=== PATIENT | female | born 1960 | race African-American/Black ===

== ENCOUNTER 2020-07-14 10:14 | Outpatient (CLI) | payer BC, SELFPAY ==
--- NOTE | ~2020-07-14 | CT_ITS ---
EXAMINATION: CT chest wo con EXAM DATE: 07/14/2020 10:38 INDICATION: Abnormal XR exam. TECHNIQUE: Spiral CT of the chest without contrast. Axial, coronal and sagittal images were reviewe d. Coronal maximum intensity pixel images of chest reviewed. The dose-length product (DLP) for this examination was 522.10 mGy-cm. The exposure was tailored according to patient size (auto mA exposur e control), and iterative reconstruction (ASIR) was used as additional dose reduction technique. The re is no prior study for comparison. FINDINGS: There are several lung nodules bilaterally, up to 4 mm in size. Most likely granulomas. Op tional one-year follow-up low-dose chest CT. There are no pleural or pericardial effusions. Trache obronchial tree is patent. There is no mediastinal, hilar or axillary lymphadenopathy. There is n o pneumothorax. Heart normal in size. No evidence of coronary arterial calcification. Upper abdo men is unremarkable. There is thoracic spondylosis without osteoblastic or osteolytic lesions ident ified. IMPRESSION: 1. Scattered small pulmonary nodules likely postinfectious. Optional one-year follow-up low-dose [facility]. Reviewed, dictated and finalized at location A. E FINISHER IMPRESSION: 1. Scattered small pulmonary nodules likely postinfectious. Optional one-year follow-up low-dose chest CT.
== END 2020-07-14 10:15 | disposition home or self-care (01) ==
LOC: ANHIMG 10:19
PROVIDERS: PCP Family Medicine; Visit Provider Family Medicine
DX: R91.8 Other nonspecific abnormal finding of lung field (principal)
CPT/HCPCS: 71250

== ENCOUNTER 2020-09-18 13:17 | Outpatient (CLI) | payer BC, SELFPAY ==
[2020-09-18 13:57] LABS: Alanine Aminotransferase 33 U/L (4-35); Albumin Level 4.5 g/dL (3.5-5.1); Alkaline Phosphatase 88 U/L (38-126); Anion Gap 3 mmol/L (8-16); Aspartate Amino Transferase 24 U/L (14-36); Bilirubin,Total 0.7 mg/dL (0.2-1.3); Blood Urea Nitrogen 12 mg/dL (7-17); Calcium 9.8 mg/dL (8.4-10.2); Carbon Dioxide 34 mmol/L (22-30); Chloride 105 mmol/L (98-107); Estimated Glomerular Filt Rate > 60; Glucose 120 mg/dL (65-105); Potassium 3.8 mmol/L (3.4-5.0); Sodium 142 mmol/L (137-145)
[2020-09-18 14:11] LABS: Hemoglobin A1C 5.9 % (<5.7)
[2020-09-18 14:38] LABS: Creatinine Urine 103.9 mg/dL
[2020-09-18 14:42] LABS: MALB Creatinine Ratio 10.5 mg/g (0-30); Microalbumin Urine Random 10.9 mg/L (0-16.7)
== END 2020-09-18 13:18 | disposition home or self-care (01) ==
LOC: ANHLAB 13:19
PROVIDERS: PCP Family Medicine; Visit Provider Family Medicine
DX: E11.40 Type 2 diabetes mellitus with diabetic neuropathy, unspecified (principal); E78.2 Mixed hyperlipidemia; I10 Essential (primary) hypertension
CPT/HCPCS: 36415; 80053; 82043; 82607; 83036

== ENCOUNTER 2021-09-22 10:47 | Outpatient (CLI) | payer OTHER, SELFPAY ==
[2021-09-22 11:37] LABS: Basophils Absolute Auto 0.1 K/mm3 (0.0-0.1); Basophils Percent Auto 0.5 % (0.2-1.2); Eosinophils Absolute Auto 0.3 K/mm3 (0-0.3); Eosinophils Percent Auto 3.2 % (0-4.4); Hematocrit 36.9 % (37.0-47.0); Immature Granulocyte Absolute 0.03 K/mm3 (0.00-0.031); Immature Granulocyte Percent A 0.3 % (0-0.5); Lymphocytes Absolute Auto 2.22 K/mm3 (0.9-3.2); Lymphocytes Percent Auto 22.3 % (18.3-44.2); Mean Corpuscular HGB Conc 32.5 g/dl (32-36); Mean Corpuscular Hemoglobin 29.8 pg (26-34); Mean Corpuscular Volume 91.6 fl (80-100); Mean Platelet Volume 10.8 fl (7.4-10.4); Monocytes Absolute Auto 0.5 K/mm3 (0.1-0.6); Monocytes Percent Auto 5.1 % (2.6-8.5); Neutrophils Absolute Auto 6.8 K/mm3 (1.3-6.7); Neutrophils Percent Auto 68.6 % (45.5-73.1); Platelet Count Result 273 k/mm3 (150-375); Red Blood Count 4.03 M/mm3 (4.2-5.4); Red Cell Distribution Width 12.4 % (11.5-14.5); White Blood Count 9.9 K/mm3 (4.5-10.0)
[2021-09-22 11:44] LABS: Hemoglobin A1C 6.7 % (<5.7)
[2021-09-22 11:47] LABS: Alanine Aminotransferase 31 U/L (4-35); Albumin Level 4.6 g/dL (3.5-5.1); Alkaline Phosphatase 100 U/L (38-126); Anion Gap 8 mmol/L (8-16); Aspartate Amino Transferase 26 U/L (14-36); Bilirubin,Total 0.5 mg/dL (0.2-1.3); Blood Urea Nitrogen 13 mg/dL (7-17); Calcium 9.5 mg/dL (8.4-10.2); Carbon Dioxide 28 mmol/L (22-30); Chloride 102 mmol/L (98-107); Cholesterol 258 mg/dL (0-200); Estimated Glomerular Filt Rate > 60; Glucose 176 mg/dL (65-110); HDL Direct 68 mg/dL; Potassium 3.8 mmol/L (3.4-5.0); Sodium 138 mmol/L (137-145); Triglycerides 104 mg/dL (<150)
[2021-09-22 11:57] LABS: LDL Cholesterol Direct 145 mg/dL
[2021-09-22 12:04] LABS: Creatinine Urine 100.5 mg/dL
[2021-09-22 12:13] LABS: MALB Creatinine Ratio < 6.0 mg/g (0-30); Microalbumin Urine Random < 6.0 mg/L (0-16.7)
[2021-09-22 12:21] LABS: Vitamin D 25 Hydroxy 21.4 ng/mL
[2021-09-22 12:53] LABS: Hepatitis C Virus Antibody Negative (Negative)
== END 2021-09-22 10:48 | disposition home or self-care (01) ==
LOC: ANHLAB 10:51
PROVIDERS: PCP Family Medicine; Visit Provider Family Medicine
DX: G47.33 Obstructive sleep apnea (adult) (pediatric) (principal); E11.40 Type 2 diabetes mellitus with diabetic neuropathy, unspecified; E78.2 Mixed hyperlipidemia; Z11.59 Encounter for screening for other viral diseases
CPT/HCPCS: 36415; 80053; 80061; 82043; 82306; 82607; 83036; 85025; 86803

== ENCOUNTER 2021-11-18 10:26 | Outpatient (CLI) | payer OTHER, SELFPAY ==
--- NOTE | ~2021-11-18 | CT_ITS ---
EXAMINATION: CT diagnostic chest wo con DATE: 11/18/2021 10:45 INDICATION: Lung nodules TECHNIQUE: Computed tomography (CT) of the chest was performed without intravenous contrast. Automate d exposure control and iterative reconstruction technique were employed. Exam dose: 366.01 mGy-cm to cristo exam DLP. COMPARISON: 07/14/2020 CT chest FINDINGS: Normal heart size. Normal caliber of the thoracic aorta. There is mild atherosclerotic calc ification of the aortic arch. No pericardial or pleural effusion. No hilar or mediastinal mass lesion or lymphadenopathy. Small calcified left lower lobe pulmonary granuloma. Stable approximately 4 mm middle lobe nodule since 11/18/2021. No significant new or enlarging pulmona ry mass lesion. Very small sliding hiatal hernia. Normal morphology of the adrenal glands.. Prominent diffuse idiopathic skeletal hyperostosis of the thoracic spine. No suspicious osteolytic or osteoblastic lesions are noted. IMPRESSION: No significant abnormality or significant change since 07/14/2020 Reviewed, dictated and finalized at Location A. Reviewed, dictated and finalized at location A.
== END 2021-11-18 10:27 | disposition home or self-care (01) ==
LOC: ANHIMG 10:30
PROVIDERS: PCP Family Medicine; Visit Provider Family Medicine
DX: R91.8 Other nonspecific abnormal finding of lung field (principal)
CPT/HCPCS: 71250

== ENCOUNTER 2021-11-28 14:54 | Outpatient (CLI) | payer OTHER, SELFPAY ==
[2021-11-28 15:21] LABS: Anion Gap 7 mmol/L (8-16); Blood Urea Nitrogen 11 mg/dL (7-17); Calcium 9.3 mg/dL (8.4-10.2); Carbon Dioxide 28 mmol/L (22-30); Chloride 102 mmol/L (98-107); Estimated Glomerular Filt Rate > 60; Glucose 180 mg/dL (65-110); Potassium 3.9 mmol/L (3.4-5.0); Sodium 137 mmol/L (137-145)
== END 2021-11-28 14:55 | disposition home or self-care (01) ==
LOC: ANHLAB 14:56
PROVIDERS: PCP Family Medicine; Visit Provider Physician Assistant Medical
DX: Z51.81 Encounter for therapeutic drug level monitoring (principal); Z79.899 Other long term (current) drug therapy
CPT/HCPCS: 36415; 80048

== ENCOUNTER 2022-02-24 14:48 | Outpatient (CLI) | payer OTHER, SELFPAY ==
[2022-02-24 16:08] LABS: Alanine Aminotransferase 24 U/L (6-35); Albumin Level 4.6 g/dL (3.5-5.1); Alkaline Phosphatase 115 U/L (38-126); Anion Gap 10 mmol/L (8-16); Aspartate Amino Transferase 24 U/L (14-36); Bilirubin,Total 0.8 mg/dL (0.2-1.3); Blood Urea Nitrogen 22 mg/dL (7-17); Calcium 9.7 mg/dL (8.4-10.2); Carbon Dioxide 28 mmol/L (22-30); Chloride 100 mmol/L (98-107); Cholesterol 260 mg/dL (0-200); Estimated Glomerular Filt Rate > 60; Glucose 263 mg/dL (65-110); HDL Direct 60 mg/dL; Potassium 3.9 mmol/L (3.4-5.0); Sodium 138 mmol/L (137-145); Triglycerides 145 mg/dL (<150)
[2022-02-24 16:19] LABS: LDL Cholesterol Direct 148 mg/dL
[2022-02-24 16:40] LABS: Creatinine Urine 104.5 mg/dL
[2022-02-24 16:42] LABS: Hemoglobin A1C 10.8 % (<5.7)
[2022-02-24 17:47] LABS: MALB Creatinine Ratio < 5.7 mg/g (0-30); Microalbumin Urine Random < 6.0 mg/L (0-16.7)
== END 2022-02-24 14:49 | disposition home or self-care (01) ==
LOC: ANHLAB 14:51
PROVIDERS: PCP Family Medicine; Visit Provider Family Medicine
DX: E11.40 Type 2 diabetes mellitus with diabetic neuropathy, unspecified (principal)
CPT/HCPCS: 36415; 80053; 80061; 82043; 82607; 83036

== ENCOUNTER 2022-06-14 14:22 | Outpatient (CLI) | payer OTHER, SELFPAY ==
--- NOTE | ~2022-06-14 | MM_ITS ---
EXAMINATION: MM screening prashant BI w charles HISTORY: Screening TECHNIQUE: Craniocaudal and mediolateral oblique 3-D tomosynthesis images were obtained and synthetic 2-D images were generated. CAD analysis was submitted and interpreted. COMPARISON: Comparison to multiple prior studies sequentially, with oldest reviewed study dated 05/02. BREAST PARENCHYMAL COMPOSITION: Breast composed of scattered areas of fibroglandular density FINDINGS: There is no evidence of suspicious mass, calcification, or architectural distortion to sugg est malignancy in either breast. There has been no suspicious interval change. IMPRESSION: 1. No mammographic evidence of malignancy. 2. Recommend routine screening mammography in one year. BI-RADS Category 1: Negative Reviewed, dictated and finalized at location A.
--- NOTE | ~2022-06-14 | DEXA_ITS ---
Bone Density Report Name: SETH DIAS Age: 62 Sex: Female Ethnicity: White Date of : 1960 Indication: postmenopausal; screening for osteoporosis; height loss; hysterectomy; Referring Provider: PALLAVI SHIPMAN Study: Bone densitometry was performed. Exam Date: June 14, 2022 Accession number: [id number] Bone Density: Region BMD T-score Z-score Classification AP Spine(L1, L2, L3) 1.091 0.7 2.3 Normal Femoral Neck (Left) 0.810 -0.4 1.1 Normal Total Hip (Left) 0.944 0.0 1.2 Normal Femoral Neck (Right) 0.797 -0.5 1.0 Normal Total Hip (Right) 0.907 -0.3 0.9 Normal Total Hip Mean 0.926 -0.2 1.1 Normal World Health Organization criteria for BMD impression classify patients as: Normal (T-score at or above -1.0), Osteopenia (T-score between -1.0 and -2.5), or Osteoporosis (T-score at or below -2.5). 10-year Fracture Risk: FRAX not reported because: All T-scores for Spine Total, Hip Total, Femoral Neck at or above -1.0 Clinical Information Provided by Patient: Has used the following medications: Vitamin D, Calcium Has the following medical conditions: Hysterectomy Patient maximum height was 67 Menopause Age: 38 Drinks caffeinated beverages Onset of menses at age 8 Number of children 4 Impression: The patient has normal bone mass. Discussion: BONE DENSITY IS ABOVE THE MINIMUM DESIRABLE LEVEL AT ALL SKELETAL SITES TESTED. This patient?s bone mineral density is above the minimum desirable level (T-score -1.0 or better) at all sites measured. The patient should follow a healthful lifestyle (good nutrition with adequate calcium and vitamin D, and appropriate weight-bearing exercise). Follow-Up: Consider repeating this study in 5 years or sooner if there is some new clinical indication. Reported by: NIC on 06/14/2022 2:52:00 PM. Reviewed, dictated and finalized at location AJace WAGNER
== END 2022-06-14 14:23 | disposition home or self-care (01) ==
LOC: ANHIMG 14:27
PROVIDERS: PCP Family Medicine; Visit Provider Family Medicine
DX: Z12.31 Encounter for screening mammogram for malignant neoplasm of breast (principal); Z78.0 Asymptomatic menopausal state
CPT/HCPCS: 77063; 77067; 77080

== ENCOUNTER 2022-09-06 12:55 | Outpatient (CLI) | payer OTHER, SELFPAY ==
[2022-09-06 19:32] LABS: Creatinine Urine 191.2 mg/dL
[2022-09-06 19:34] LABS: MALB Creatinine Ratio 45.1 mg/g (0-30); Microalbumin Urine Random 86.3 mg/L (0-16.7)
[2022-09-06 20:35] LABS: Alanine Aminotransferase 23 U/L (6-35); Albumin Level 4.4 g/dL (3.5-5.1); Alkaline Phosphatase 85 U/L (38-126); Anion Gap 5 mmol/L (8-16); Aspartate Amino Transferase 27 U/L (14-36); Bilirubin,Total 0.5 mg/dL (0.2-1.3); Blood Urea Nitrogen 14 mg/dL (7-17); Calcium 9.2 mg/dL (8.4-10.2); Carbon Dioxide 29 mmol/L (22-30); Chloride 107 mmol/L (98-107); Cholesterol 254 mg/dL (0-200); Estimated Glomerular Filt Rate > 60; Glucose 129 mg/dL (65-110); HDL Direct 63 mg/dL; Potassium 4.1 mmol/L (3.4-5.0); Sodium 141 mmol/L (137-145); Triglycerides 93 mg/dL (<150)
[2022-09-06 20:46] LABS: LDL Cholesterol Direct 132 mg/dL
== END 2022-09-06 12:56 | disposition home or self-care (01) ==
LOC: ANHGOSHLAB 12:57
PROVIDERS: PCP Family Medicine; Visit Provider Family Medicine
DX: E11.40 Type 2 diabetes mellitus with diabetic neuropathy, unspecified (principal)
CPT/HCPCS: 36415; 80053; 80061; 82043; 82607; 83036

== ENCOUNTER 2023-03-07 12:36 | Outpatient (CLI) | payer MEDICARE, SELFPAY ==
[2023-03-07 18:45] LABS: Basophils Absolute Auto 0.1 K/mm3 (0.0-0.1); Basophils Percent Auto 0.7 % (0.2-1.2); Eosinophils Absolute Auto 0.1 K/mm3 (0-0.3); Eosinophils Percent Auto 1.1 % (0-4.4); Hemoglobin 12.7 g/dL (12.0-15.0); Immature Granulocyte Absolute 0.02 K/mm3 (0.00-0.031); Immature Granulocyte Percent A 0.2 % (0-0.5); Lymphocytes Absolute Auto 2.33 K/mm3 (0.9-3.2); Lymphocytes Percent Auto 23.4 % (18.3-44.2); Mean Corpuscular HGB Conc 32.6 g/dl (32-36); Mean Corpuscular Volume 92.2 fl (80-100); Mean Platelet Volume 10.9 fl (7.4-10.4); Monocytes Absolute Auto 0.5 K/mm3 (0.1-0.6); Monocytes Percent Auto 4.5 % (2.6-8.5); Neutrophils Percent Auto 70.1 % (45.5-73.1); Platelet Count Result 303 k/mm3 (150-375); Red Blood Count 4.23 M/mm3 (4.2-5.4); Red Cell Distribution Width 12.2 % (11.5-14.5)
[2023-03-07 19:08] LABS: Alanine Aminotransferase 22 U/L (6-35); Albumin Level 4.7 g/dL (3.5-5.1); Alkaline Phosphatase 94 U/L (38-126); Anion Gap 9 mmol/L (8-16); Aspartate Amino Transferase 36 U/L (14-36); Bilirubin,Total 0.6 mg/dL (0.2-1.3); Blood Urea Nitrogen 12 mg/dL (7-17); Calcium 9.4 mg/dL (8.4-10.2); Carbon Dioxide 30 mmol/L (22-30); Chloride 102 mmol/L (98-107); Cholesterol 271 mg/dL (0-200); Estimated Glomerular Filt Rate > 60; Glucose 135 mg/dL (65-110); HDL Direct 61 mg/dL; Potassium 3.5 mmol/L (3.4-5.0); Sodium 141 mmol/L (137-145); Triglycerides 148 mg/dL (<150)
[2023-03-07 19:16] LABS: Creatinine Urine 18.3 mg/dL
[2023-03-07 19:19] LABS: LDL Cholesterol Direct 157 mg/dL
[2023-03-07 19:20] LABS: Vitamin D 25 Hydroxy 21.7 ng/mL
[2023-03-07 19:32] LABS: Microalbumin Urine Random < 6.0 mg/L (0-16.7)
[2023-03-07 19:45] LABS: Hemoglobin A1C 6.4 % (<5.7)
== END 2023-03-07 12:37 | disposition home or self-care (01) ==
LOC: ANHGOSHLAB 12:39
PROVIDERS: PCP Family Medicine; Visit Provider Family Medicine
DX: E11.40 Type 2 diabetes mellitus with diabetic neuropathy, unspecified (principal); G47.33 Obstructive sleep apnea (adult) (pediatric); E55.9 Vitamin D deficiency, unspecified
CPT/HCPCS: 36415; 80053; 80061; 82043; 82306; 82607; 83036; 85025

== ENCOUNTER 2023-04-13 10:50 | Outpatient (CLI) | payer MEDICARE, SELFPAY ==
--- NOTE | ~2023-04-13 | MMUS_ITS ---
EXAMINATION: MM diagnostic prashant BI w charles, US breast LT limited HISTORY: Palpable lump in the upper outer quadrant of the left breast TECHNIQUE: Craniocaudal, mediolateral, and mediolateral oblique 3-D tomosynthesis images of the left breast were performed and synthetic 2-D images were generated. CAD analysis was submitted and interpr eted. High resolution limited left breast ultrasound was performed. COMPARISON: 06/14/2022, 05/02/2017 BREAST PARENCHYMAL COMPOSITION: The breasts are almost entirely fatty. FINDINGS: MAMMOGRAPHIC FINDINGS: Right breast: No suspicious mass, calcification, or architectural distortion are identified to sugges t malignancy. There has been no suspicious interval change. Left breast: There is a 4 mm round, circumscribed, low density mass in the anterior third of the slig htly upper breast at the 1:00 location 4 cm from the nipple corresponding to the palpable abnormality of concern. No suspicious calcification or architectural distortion are identified. ULTRASOUND: There is a 4 mm round, circumscribed, hypoechoic mass at the 12:00 location 3 cm from the nipple with no posterior features or internal vascularity corresponding to the palpable abnormality of concern w hich appears to demonstrate a tract to the skin surface, consistent with a sebaceous cyst. IMPRESSION: 1. Findings consistent with a sebaceous cyst of the left breast corresponding to the palpable abnorma lity of concern. 2. Recommend routine screening mammography in one year. BI-RADS Category 2: Benign finding(s). Reviewed, dictated and finalized at location A. IMPRESSION: 1. Findings consistent with a sebaceous cyst of the left breast corresponding t o the palpable abnormality of concern. 2. Recommend routine screening mammography in one year. BI-RADS Category 2: Benign finding(s).
== END 2023-04-13 10:51 | disposition home or self-care (01) ==
LOC: ANHIMG 10:51
PROVIDERS: PCP Family Medicine; Visit Provider Family Medicine
DX: N63.20 Unspecified lump in the left breast, unspecified quadrant (principal); R92.8 Other abnormal and inconclusive findings on diagnostic imaging of breast
CPT/HCPCS: 76642; 77062; 77066; G0279

== ENCOUNTER 2023-06-27 00:51 | Day surgery (SDC) | payer MEDICARE, SELFPAY ==
[2023-06-15 14:02] VITALS: BMI 36.2
--- NOTE | 2023-06-26 16:28 | PM.HPGS ---
History of Present Illness History of Present Illness Consent: Risks, benefits, and alternatives have been discussed and questions answered. Patient agrees to proceed with procedure. Chief complaint: neoplasm screening Narrative: Celio Pompa is a 63 year old female referred for colon cancer screening. Review of Systems Review of Systems: All systems reviewed & are unremarkable except as noted in HPI and below PMFSH Past Medical History Medical History Cervical radiculopathy at C8 Spinal stenosis of lumbosacral region (11/25/17) Surgical History Surgical History History of back surgery Family History Family History Mother Cerebrovascular accident Family history of malignant neoplasm of breast in first degree relative Father Family history of pancreatic cancer Social History Social History Smoking status: Never smoker Alcohol intake: current Drinks per week: 1 Substance use type: does not use Lack of Transportation: No Lack of Food: Never True Current Housing: I Have Housing Concerned About Future Housing: No Difficulty Paying Gas/Electric Bills: No Difficulty Paying for Meds: No Currently Unemployed: No Education: Bachelor's Degree Difficulty w/ Childcare or Family Care: No Living arrangements: with family Occupation/Education: retired Spiritual care concerns: No Meds Home Medications and Allergies Home Medications Medication Instructions Recorded Confirmed Type atorvastatin 40 mg tablet 40 mg PO QHS #90 tabs 09/22/21 06/15/23 Rx furosemide 40 mg tablet 40 mg PO QAM #90 tabs 04/19/22 06/15/23 Rx flash glucose scanning reader #1 ea 09/06/22 06/12/23 Rx (FreeStyle Vivi 2 [place]) flash glucose sensor (FreeStyle #10 ea 09/06/22 06/12/23 Rx Vivi 2 Sensor kit) metformin 500 mg tablet,extended 1,000 mg PO BID #360 tabs 09/06/22 06/15/23 Rx release 24 hr celecoxib 100 mg capsule See Rx Instructions .Route 11/15/22 06/15/23 Rx .COMPLEX #180 caps tizanidine 2 mg capsule See Rx Instructions .Route 11/15/22 06/15/23 Rx .COMPLEX #90 caps blood sugar diagnostic #100 ea 01/10/23 06/12/23 Rx amlodipine 5 mg-olmesartan 40 mg 1 tablet PO DAILY #90 tabs 01/24/23 06/15/23 Rx tablet mupirocin 2 % topical ointment 1 applic topical BID #22 grams 06/08/23 06/15/23 Rx clotrimazole 1 % topical cream 1 applic topical Q12H #45 grams 06/12/23 06/15/23 Rx Allergies Allergy/AdvReac Type Severity Reaction Status Date / Time semaglutide [From [facility]] AdvReac Intermediate blurriness Verified 06/27/23 09:24 of vision Exam Const: General: alert Orientation/consciousness: patient oriented x3 Resp: Auscultation: clear to auscultation bilaterally Cardio: Rhythm: regular rhythm GI: GI Palp: Yes Soft to palpation and No Tenderness to palpation present (GI) Neuro: General: patient oriented x3 Assessment and Plan Assessment and plan (1) Colon cancer screening: Code(s): Z12.11 - Encounter for screening for malignant neoplasm of colon Status: Acute Assessment and Plan: Colonoscopy with possible biopsy or polypectomy or cautery or injection of substances.
[2023-06-27 09:26] VITALS: BP 144/81; PULSE 73; RESP 20; TEMP 36.2; O2SAT 98; BMI 35.0
[2023-06-27] MEDS: LACTATED RINGERS 1,000 ML 150 ML IV CONT (09:40)
[2023-06-27 09:41] LABS: Glucose Point of Care 151 mg/dl (65-105)
--- NOTE | 2023-06-27 09:55 | WPDANESEPPF ---
Anes - Initial Pre Proc Eval Procedure: Operation Date: 06/27/23 10:30 Proposed Procedures p Screening Colonoscopy - Saeed Steve MD Date/Time: 06/27/23 09:55 Surgeon: Saeed Steve MD Pre Op Diagnosis: neoplasm screening Patient Data Age: 63 Gender: F Height: 1.7 m Weight: 101.5 kg Last Vital Signs Temp 97.2 F L 06/27/23 09:26 Pulse 73 06/27/23 09:26 Resp 20 06/27/23 09:26 BP 144/81 H 06/27/23 09:26 Pulse Ox 98 06/27/23 09:26 O2 Del Method Room Air 06/27/23 09:26 Allergies Allergy/AdvReac Type Severity Reaction Status Date / Time semaglutide [From [facility]] AdvReac Intermediate blurriness Verified 06/27/23 09:24 of vision Home Medications Medication Instructions Recorded Confirmed Type atorvastatin 40 mg tablet 40 mg PO QHS #90 tabs 09/22/21 06/15/23 Rx furosemide 40 mg tablet 40 mg PO QAM #90 tabs 04/19/22 06/15/23 Rx flash glucose scanning reader #1 ea 09/06/22 06/12/23 Rx (FreeStyle Vivi 2 [place]) flash glucose sensor (FreeStyle #10 ea 09/06/22 06/12/23 Rx Vivi 2 Sensor kit) metformin 500 mg tablet,extended 1,000 mg PO BID #360 tabs 09/06/22 06/15/23 Rx release 24 hr celecoxib 100 mg capsule See Rx Instructions .Route 11/15/22 06/15/23 Rx .COMPLEX #180 caps tizanidine 2 mg capsule See Rx Instructions .Route 11/15/22 06/15/23 Rx .COMPLEX #90 caps blood sugar diagnostic #100 ea 01/10/23 06/12/23 Rx amlodipine 5 mg-olmesartan 40 mg 1 tablet PO DAILY #90 tabs 01/24/23 06/15/23 Rx tablet mupirocin 2 % topical ointment 1 applic topical BID #22 grams 06/08/23 06/15/23 Rx clotrimazole 1 % topical cream 1 applic topical Q12H #45 grams 06/12/23 06/15/23 Rx Laboratory Tests 06/27/23 09:37 POC Capillary Glucose 151 H mg/dl (65-105) Patient hx anesthesia problems: none Family hx anesthesia problems: none Results Review: All pre-operative results and documents have been reviewed as part of the pre-operative evaluation. [facility] Past Medical History Medical History Cervical radiculopathy at C8 Spinal stenosis of lumbosacral region (11/25/17) Surgical History Surgical History History of back surgery Family History Family History Mother Cerebrovascular accident Family history of malignant neoplasm of breast in first degree relative Father Family history of pancreatic cancer Social History Social History Smoking status: Never smoker Alcohol intake: current Drinks per week: 1 Substance use type: does not use Lack of Transportation: No Lack of Food: Never True Current Housing: I Have Housing Concerned About Future Housing: No Difficulty Paying Gas/Electric Bills: No Difficulty Paying for Meds: No Currently Unemployed: No Education: Bachelor's Degree Difficulty w/ Childcare or Family Care: No Living arrangements: with family Occupation/Education: retired Spiritual care concerns: No Anes - Eval Final PreProcedure Day of Procedure 06/27/23 09:55 Patient weight: normal Heart: regular rate and rhythm Lungs: clear to auscultation Airway: Mallampati scale class II Neurological: alert and oriented Last oral intake: >/= 8 hours ASA classification: III Emergent: no Anesthetic plan: proceed Anesthesia type and monitoring: general GIVS and standard monitoring Results Review: All pre-operative results and documents have been reviewed as part of the pre-operative evaluation. Informed Consent: The patient's anesthetic plan and its attendant risks and benefits were discussed with the patient/family/POA. Questions were solicited and answers provided to the satisfaction of the patient/family/POA.
[2023-06-27 10:19] VITALS: BP 100/54; PULSE 64; RESP 15; O2SAT 96
[2023-06-27 10:29] VITALS: BP 89/56; PULSE 68; RESP 18; O2SAT 96
[2023-06-27 10:39] VITALS: BP 121/69; PULSE 64; RESP 17; O2SAT 95
== END 2023-06-27 10:58 | disposition home or self-care (01) ==
PROVIDERS: PCP Family Medicine; Visit Provider Internal Medicine Gastroenterology
PROC: 0DJD8ZZ Inspection of Lower Intestinal Tract, Via Natural or Artificial Opening Endoscopic (ICD-10-PCS; CPT 45378; principal; 2023-06-27 10:30)
DX: Z12.11 Encounter for screening for malignant neoplasm of colon (principal); K64.8 Other hemorrhoids; Z79.84 Long term (current) use of oral hypoglycemic drugs
CPT/HCPCS: G0121; 82948; J2704; J7120

== ENCOUNTER 2024-05-15 13:08 | Outpatient (CLI) | payer MEDICARE, SELFPAY ==
[2024-05-15 13:43] LABS: Alanine Aminotransferase 24 U/L (6-35); Albumin Level 4.5 g/dL (3.5-5.1); Alkaline Phosphatase 80 U/L (38-126); Anion Gap 8 mmol/L (4-12); Aspartate Amino Transferase 21 U/L (14-36); Bilirubin,Total 0.7 mg/dL (0.2-1.3); Blood Urea Nitrogen 14 mg/dL (7-17); Calcium 9.4 mg/dL (8.4-10.2); Carbon Dioxide 29 mmol/L (22-30); Chloride 102 mmol/L (98-107); Cholesterol 185 mg/dL (0-200); Estimated Glomerular Filt Rate > 60; Glucose 134 mg/dL (65-110); HDL Direct 67 mg/dL; Potassium 3.8 mmol/L (3.4-5.0); Sodium 139 mmol/L (137-145); Triglycerides 79 mg/dL (<150)
[2024-05-15 13:52] LABS: Hemoglobin A1C 6.5 % (<5.7)
[2024-05-15 13:54] LABS: LDL Cholesterol Direct 88 mg/dL
[2024-05-15 14:09] LABS: Creatinine Urine 237.6 mg/dL
[2024-05-15 14:13] LABS: MALB Creatinine Ratio 17.7 mg/g (0-30); Microalbumin Urine Random 42.1 mg/L (0-16.7)
== END 2024-05-15 13:09 | disposition home or self-care (01) ==
LOC: ANHLAB 13:13
PROVIDERS: PCP Family Medicine; Visit Provider Family Medicine
DX: E11.40 Type 2 diabetes mellitus with diabetic neuropathy, unspecified (principal)
CPT/HCPCS: 36415; 80053; 80061; 82043; 82607; 83036

== ENCOUNTER 2024-11-18 15:03 | Outpatient (CLI) | payer MEDICARE, SELFPAY ==
[2024-11-18 15:56] LABS: Alanine Aminotransferase 23 U/L (6-35); Albumin Level 4.7 g/dL (3.5-5.1); Alkaline Phosphatase 79 U/L (38-126); Anion Gap 11 mmol/L (4-12); Aspartate Amino Transferase 20 U/L (14-36); Blood Urea Nitrogen 14 mg/dL (7-17); Calcium 9.7 mg/dL (8.4-10.2); Carbon Dioxide 25 mmol/L (22-30); Chloride 106 mmol/L (98-107); Cholesterol 161 mg/dL (0-200); Estimated Glomerular Filt Rate > 60; Glucose 137 mg/dL (65-110); HDL Direct 62 mg/dL; Sodium 142 mmol/L (137-145); Triglycerides 69 mg/dL (<150)
[2024-11-18 16:07] LABS: LDL Cholesterol Direct 65 mg/dL
[2024-11-18 16:15] LABS: Hemoglobin A1C 6.3 % (<5.7)
[2024-11-18 16:15] LABS: Microalbumin Urine Random 64.7 mg/L (0-16.7)
[2024-11-18 16:49] LABS: Creatinine Urine 447.4 mg/dL; MALB Creatinine Ratio 14.5 mg/g (0-30)
== END 2024-11-18 15:04 | disposition home or self-care (01) ==
LOC: ANHLAB 15:06
PROVIDERS: PCP Family Medicine; Visit Provider Family Medicine
DX: E11.40 Type 2 diabetes mellitus with diabetic neuropathy, unspecified (principal)
CPT/HCPCS: 36415; 80053; 80061; 82043; 82607; 83036

== ENCOUNTER 2025-06-10 12:34 | Outpatient (CLI) | payer MEDICARE, SELFPAY ==
[2025-06-10 19:18] LABS: Alanine Aminotransferase 22 U/L (6-35); Albumin Level 4.4 g/dL (3.5-5.1); Alkaline Phosphatase 79 U/L (38-126); Anion Gap 7 mmol/L (4-12); Aspartate Amino Transferase 31 U/L (14-36); Bilirubin,Total 0.5 mg/dL (0.2-1.3); Blood Urea Nitrogen 13 mg/dL (7-17); Calcium 9.4 mg/dL (8.4-10.2); Carbon Dioxide 29 mmol/L (22-30); Chloride 103 mmol/L (98-107); Cholesterol 199 mg/dL (0-200); Estimated Glomerular Filt Rate > 60; Glucose 130 mg/dL (65-110); HDL Direct 61 mg/dL; Potassium 4.1 mmol/L (3.4-5.0); Sodium 139 mmol/L (137-145); Total Protein 8.0 g/dL (6.3-8.2); Triglycerides 95 mg/dL (<150)
[2025-06-10 19:32] LABS: Hemoglobin A1C 6.4 % (<5.7)
[2025-06-10 19:58] LABS: MALB Creatinine Ratio 52.5 mg/g (0-30)
[2025-06-10 20:13] LABS: Vitamin B12 > 1000.0 pg/mL (239-931)
== END 2025-06-10 12:35 | disposition home or self-care (01) ==
LOC: ANHGOSHLAB 12:35
PROVIDERS: PCP Family Medicine; Visit Provider Family Medicine
DX: E11.40 Type 2 diabetes mellitus with diabetic neuropathy, unspecified (principal); E55.9 Vitamin D deficiency, unspecified; Z78.0 Asymptomatic menopausal state
CPT/HCPCS: 36415; 80053; 80061; 82043; 82306; 82607; 83036

== ENCOUNTER 2025-07-23 12:08 | Outpatient (CLI) | payer MEDICARE, SELFPAY ==
--- NOTE | ~2025-07-23 | MM_ITS ---
EXAMINATION: MM screening prashant BI w charles HISTORY: Screening TECHNIQUE: Craniocaudal and mediolateral oblique 3-D tomosynthesis images were obtained and synthetic 2-D images were generated. CAD analysis was submitted and interpreted. COMPARISON: Comparison to multiple prior studies sequentially, with oldest reviewed study dated , 05/02/2017 BREAST PARENCHYMAL COMPOSITION: Not Dense: The breasts are almost entirely fatty. FINDINGS: There is no evidence of suspicious mass, calcification, or architectural distortion to suggest malignancy in either breast. IMPRESSION: 1. No mammographic evidence of malignancy. 2. Recommend routine screening mammography in one year. BI-RADS Category 1: Negative Reviewed, dictated and finalized at location B. DENT HANDLER
== END 2025-07-23 12:09 | disposition home or self-care (01) ==
PROVIDERS: PCP Family Medicine; Visit Provider Family Medicine
DX: Z12.31 Encounter for screening mammogram for malignant neoplasm of breast (principal)
CPT/HCPCS: 77063; 77067

== ENCOUNTER 2025-08-10 19:07 | Observation (INO) | payer MEDICARE, SELFPAY ==
--- NOTE | ~2025-08-10 | CT_ITS ---
EXAMINATION: CTA brain carotid DATE: 08/10/2025 23:46 INDICATION: Dysphasia. TECHNIQUE: Computed tomographic angiography (CTA) of the head was performed without and with 100 mL Omnipaque-350 intravenous contrast. CTA of the neck was performed with intravenous contrast. Automated exposure control and iterative reconstruction technique were employed. The dose-length product was 1780.86 mGy- cm. Maximum intensity projection and volume rendered 3D-reconstructions were created by the technologist on a separate workstation. COMPARISON: None. FINDINGS: HEAD CTA: There is no intracranial hemorrhage, acute infarction, or abnormal intracranial mass lesion. There are scattered areas of low attenuation in the cerebral white matter, which is within normal limits for the patient's age. The ventricles are normal in size. There is mild mucosal thickening in the paranasal sinuses. The orbits are normal. The mastoid air cells are normal. The vertebral arteries are codominant. There is no significant stenosis of basilar artery or the posterior cerebral arteries. There is no significant stenosis of the intracranial internal carotid arteries or anterior or middle cerebral arteries. Anterior communicating artery is normal. The posterior communicating arteries a re normal. There is no aneurysm. NECK CTA: There are no pathologically enlarged lymph nodes. There is no significant stenosis of the vertebral arteries. There is plaque in the proximal internal carotid arteries. There is 0% stenosis of the proximal right internal carotid artery relative to normal distal artery lumen diameter (NASCET c riteria). There is 0% stenosis of the proximal left internal carotid artery relative to normal distal artery lumen diameter. There is mild cervical spondylosis. IMPRESSION: 1. Normal aging brain. 2. No aneurysm or significant intracranial internal stenosis. 3. 0% stenosis of the proximal internal carotid arteries relative to normal distal artery lumen diameters (NASCET criteria). Reviewed, dictated and finalized at location E. [place] STORE MANAGER IMPRESSION: 1. Normal aging brain. 2. No aneurysm or significant intracranial internal stenosis. 3. 0% stenosis of the proximal internal carotid arteries relative to normal dis cristo artery lumen diameters (NASCET criteria).
--- NOTE | ~2025-08-10 | MR_ITS ---
EXAMINATION: MRI brain with and without contrast DATE: 08/11/2025 INDICATION: TIA symptoms TECHNIQUE: Axial coronal and sagittal images including diffusion weighted sequence, FLAIR sequence and T2*gradient echo sequence as well as postcontrast series after administration of MultiHance IV COMPARISON: CT angiogram dated 08/10/2025. FINDINGS: No acute ischemia in the diffusion images. No evidence of intracranial bleed or extra-axial collections. No evidence of ventriculomegaly or midline shift. No abnormal enhancement on the postcontrast study. IMPRESSION: 1. No evidence of acute ischemia or space-occupying lesions or abnormal enhancement. 2. No significant chronic ischemic change. No ventriculomegaly. Reviewed, dictated and finalized at location T. ERS INSPECTOR IMPRESSION: 1. No evidence of acute ischemia or space-occupying lesions or abnormal enhance ment. 2. No significant chronic ischemic change. No ventriculomegaly.
[2025-08-10 19:38] VITALS: BP 185/82; PULSE 73; RESP 21; TEMP 36.4; O2SAT 99
[2025-08-10 21:42] VITALS: BP 180/82; PULSE 70; RESP 16; O2SAT 70
--- NOTE | 2025-08-10 22:22 | ECG_ITS ---
Test Date: 2025-08-10 23:55:40 Measurements Intervals [place] Rate: 68 P: 53 GA: 203 QRS: 19 QRSD: 88 T: 76 QT: 416 QTc: 444 Interpretive Statements SINUS RHYTHM WITH SINUS ARRHYTHMIA LOW QRS VOLTAGE IN PRECORDIAL LEADS BORDERLINE ECG No previous ECG available for comparison Electronically Signed On 08-11-2025 06:25:40 CHEMISTRY LAB INSTRUCTOR by Jason Gonzalez D.O.
--- NOTE | 2025-08-10 22:23 | ED.GENADULT ---
HPI - General Adult General Chief complaint: Headache Stated complaint: headache Time Seen by Provider: 08/10/25 22:03 History of Present Illness HPI narrative: 65-year-old female presented emergency department for evaluation for difficulty with word finding and associated headache. 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 Patient's was present during this and stated that she could not find any words. He states she was not slurring her words and was not saying words that do not make sense but that she was just having difficulty saying any words. Patient denies any focal numbness or weakness. Patient states that after the onset of the speech symptoms which lasted approximately an hour she did have onset of a left-sided headache. Patient is diabetic, has history of hypertension high cholesterol. Upon arrival emergency department patient states that she does still have a mild headache but speech symptoms have resolved. Patient denies any focal numbness or weakness. Patient denies any prior history of CVA or TIA. Related Data Home Medications ?Medication ?Instructions ?Recorded ?Confirmed ?Last Taken ?Type acetaminophen 650 mg 650 mg PO Q12H 05/22/24 08/11/25 08/11/25 History tablet,extended release (Tylenol Arthritis Pain) glucosamine sulfate 500 mg tablet 500 mg PO DAILY 05/22/24 08/11/25 08/10/25 History (Glucosamine) lactobacillus combination no.4 3 3,000 mmu cells PO DAILY 05/22/24 08/11/25 08/10/25 History billion cell capsule (Probiotic) lysine 500 mg tablet 500 mg PO DAILY 05/22/24 08/11/25 08/10/25 History omega 0-rvt-lxl-fish oil 300 1 cap PO DAILY 05/22/24 08/11/25 08/11/25 History mg-1,000 mg capsule vitamin B12 0.5 mg-folic acid 1 mg 1 tablet PO DAILY 05/22/24 08/11/25 08/10/25 History tablet cholecalciferol (vitamin D3) 25 25 mcg PO DAILY 06/10/25 08/11/25 08/10/25 History mcg (1,000 unit) capsule ibuprofen 200 mg tablet 400 mg PO ONCE PRN pain 06/10/25 08/11/25 Unknown History furosemide 40 mg tablet 40 mg PO PRN PRN monitor blood 1208/11/25 08/10/25 History pressure Allergies Allergy/AdvReac Type Severity Reaction Status Date / Time semaglutide (From [facility]) AdvReac Intermediate blurriness Verified 08/11/25 03:11 of vision Review of Systems Review of Systems: All systems reviewed & are unremarkable except as noted in HPI and below PMFSH Past Medical History Medical History Cervical radiculopathy at C8 Spinal stenosis of lumbosacral region (11/25/17) Surgical History Surgical History History of back surgery Family History Family History Mother Cerebrovascular accident Family history of malignant neoplasm of breast in first degree relative Father Family history of pancreatic cancer Social History Social History Smoking status: Never smoker Second hand tobacco smoke exposure: No Alcohol intake: never Drinks per week: 1 Substance use: never Substance use type: does not use Lack of Transportation: No Lack of Food: Never True Current Housing: I Have Housing Concerned About Future Housing: No Difficulty Paying Gas/Electric Bills: No Difficulty Paying for Meds: No Currently Unemployed: No Education: Bachelor's Degree Difficulty w/ Childcare or Family Care: No Living arrangements: with family Occupation/Education: retired Spiritual care concerns: No Exam Narrative: APPEARANCE: Well appearing, no pain, no distress, well-nourished. HEAD: normocephalic, atraumatic. EYES: PERRLA/EOMI, conjunctivae clear. NOSE: Normal no drainage EARS:TMS clear with good light reflex. THROAT: Pharynx clear, no exudate. NECK: Supple. No adenopathy, no masses. RESPIRATORY: Airway patent, respirations nonlabored. Clear to auscultation bilaterally, no rales, rhonchi, wheezing. CARDIOVASCULAR: Regular rate and rhythm without murmurs rubs or gallops. ABDOMINAL: Soft, nontender, nondistended, normal bowel sounds MUSCULOSKELETAL: Moves all extremities. Strength/ROM intact, No edema, No calf tenderness. NEURO: Alert. Cranial nerves II through XII intact. Good gait. Good coordination SKIN: Warm, dry. Normal Color Course Vital Signs Vital signs: Vital Signs Temperature 97.6 F 08/10/25 19:38 Pulse Rate 73 08/10/25 19:38 Respiratory Rate 21 H 08/10/25 19:38 Blood Pressure 185/82 H 08/10/25 19:38 Pulse Oximetry 99 08/10/25 19:38 Oxygen Delivery Room Air 08/10/25 19:38 Temperature 97.6 F 08/10/25 19:38 Pulse Rate 77 08/11/25 05:07 Respiratory Rate 14 08/11/25 05:07 Blood Pressure 149/87 H 08/11/25 05:07 Pulse Oximetry 98 08/11/25 05:07 Oxygen Delivery Room Air 08/10/25 21:42 [facility] Narrative Medical decision making narrative: 65-year-old female presenting to the emergency department for evaluation for proximal 1 hour of difficulty with word finding and associated headache. Patient is diabetic, hypertensive and hyperlipidemic. Patient has no prior history of TIA or CVA. Patient is neurovascularly intact with no acute focal deficit as back to her normal baseline at time of evaluation. Patient was currently afebrile with no leukocytosis and hemoglobin of 11.1. Patient's INR is 1.1. No acute significant abnormalities on her CMP UA was negative for infection. CTA brain and neck were negative for acute infarction, aneurysm or stenosis or occlusion. Patient will need to be admitted for further TIA workup including Doppler and MRI. Neurology consult was placed. Differential Diagnosis Differential Diagnosis: Subdural hematoma subarachnoid hemorrhage, TIA, CVA, complex migraine Lab Data [facility] Lab Attestation statement: I personally reviewed the patient's lab results. 08/11/25 00:00 08/10/25 22:54 Labs: Lab Results 08/10/25 08/10/25 08/11/25 Range/Units 19:45 22:54 00:00 WBC 10.1 H (4.5-10.0) K/mm3 RBC 3.76 L (4.2-5.4) M/mm3 Hgb 11.1 L (12.0-15.0) g/dL Hct 34.5 L (37.0-47.0) % MCV 91.8 (80-100) fl MCH 29.5 (26-34) pg MCHC 32.2 (32-36) g/dl RDW 12.7 (11.5-14.5) % Plt Count 222 (150-375) k/mm3 MPV 11.1 H (7.4-10.4) fl Immature Gran % (Auto) 0.2 (0-0.5) % Neut % (Auto) 68.2 (45.5-73.1) % Lymph % (Auto) 23.8 (18.3-44.2) % [place] % (Auto) 4.4 (2.6-8.5) % Eos % (Auto) 2.8 (0-4.4) % Baso % (Auto) 0.6 (0.2-1.2) % Lymph # (Auto) 2.39 (0.9-3.2) K/mm3 [place] # (Auto) 0.4 (0.1-0.6) K/mm3 Eos # (Auto) 0.3 (0-0.3) K/mm3 Baso # (Auto) 0.1 (0.0-0.1) K/mm3 Abs Immat Gran (auto) 0.02 (0.00-0.031) K/mm3 Absolute Neuts (auto) 6.9 H (1.3-6.7) K/mm3 Absolute Nucleated RBC 0.000 (0.0-0.012) K/mm3 Band Neutrophils % Not Reportable Nucleated RBC % 0.0 (0.0-0.2) % Platelet Estimate Adequate (Adequate) Anisocytosis 1+ Ovalocytes Occasional Schistocytes None seen PT 14.1 (11.1-14.7) Seconds INR 1.1 APTT 25.6 (22.3-36.8) Seconds Sodium 138 (137-145) mmol/L Potassium 3.5 (3.4-5.0) mmol/L Chloride 104 (98-107) mmol/L Carbon Dioxide 26 (22-30) mmol/L Anion Gap 8 (4-12) mmol/L BUN 11 (7-17) mg/dL Creatinine 0.69 L (0.7-1.0) mg/dL Estim Creat Clear Calc 84 ml/min Estimated GFR > 60 (59 - ) Glucose 152 H (65-110) mg/dL POC Capillary Glucose 131 H (65-105) mg/dl Calcium 9.6 (8.4-10.2) mg/dL Total Bilirubin 0.8 (0.2-1.3) mg/dL AST 27 (14-36) U/L ALT 26 (6-35) U/L Alkaline Phosphatase 83 (38-126) U/L Total Protein 8.5 H (6.3-8.2) g/dL Albumin 4.7 (3.5-5.1) g/dL Urine Color Yellow (Yellow) Urine Appearance Clear (Clear) Urine pH 7.0 (5.0-9.0) Ur Specific [place] 1.008 (1.001-1.035) Urine Protein Negative (Negative) mg/dL Urine Glucose (UA) Negative (Negative) mg/dL Urine Ketones Negative (Negative) mg/dL Ur Blood (Man) Negative (Negative) Urine Nitrate Negative (Negative) Urine Bilirubin Negative (Negative) Urine Urobilinogen 0.2 (<2.0) mg/dL Leukocyte Esterase Rfl Trace H (Negative) ANUSHKA/UL Urine RBC 0-2 (0-2) /hpf Urine WBC 0-5 (0-3) /hpf Ur Squamous Epith Cells None seen (Few) /hpf Urine Bacteria None seen /hpf Urine Casts 0-2 Imaging Data Radiologist's impression: Overnight read CTA head impression: No stenosis, dissection, aneurysm or occlusion. CTA neck impression: No stenosis dissection aneurysm or occlusion. Discharge Plan Discharge Clinical Impression: Brain TIA, Dysphasia Patient Disposition: Still a Patient Condition: Serious Quality Stroke Scale Stroke Scale 1: 1a Level of consciousness: alert-0 1b Level of consciousness questions: answers both correctly-0 1c Level of consciousness commands: obeys both correctly-0 2 Best gaze: normal-0 3 Visual: no visual loss-0 4 Facial palsy: normal-0 5a Motor: left arm: no drift-0 5b Motor: right arm: no drift-0 6a Motor: left leg: no drift-0 6b Motor: right leg: no drift-0 7 Limb ataxia: absent-0 8 Sensory: normal-0 9 Best language: no aphasia-0 10 Dysarthria: normal-0 11 Extinction and inattention: no abnormality-0 Level:: 0
[2025-08-10 22:30] VITALS: BP 167/90; PULSE 58; RESP 18; O2SAT 97
[2025-08-10] MEDS: PROCHLORPERAZINE EDISYLATE 10 MG/2 ML VIAL IV PUSH (22:48)
[2025-08-10] MEDS: SODIUM CHLORIDE 0.9% IV 1,000 ML 999 ML IV CONT (22:53)
[2025-08-10 23:11] LABS: Alanine Aminotransferase 26 U/L (6-35); Albumin Level 4.7 g/dL (3.5-5.1); Alkaline Phosphatase 83 U/L (38-126); Anion Gap 8 mmol/L (4-12); Aspartate Amino Transferase 27 U/L (14-36); Bilirubin,Total 0.8 mg/dL (0.2-1.3); Blood Urea Nitrogen 11 mg/dL (7-17); Calcium 9.6 mg/dL (8.4-10.2); Carbon Dioxide 26 mmol/L (22-30); Chloride 104 mmol/L (98-107); Estimated CRCL calculation 84 ml/min; Estimated Glomerular Filt Rate > 60; Glucose 152 mg/dL (65-110); Potassium 3.5 mmol/L (3.4-5.0); Sodium 138 mmol/L (137-145); Total Protein 8.5 g/dL (6.3-8.2)
[2025-08-10 23:13] LABS: INR 1.1; Prothrombin Time 14.1 Seconds (11.1-14.7)
[2025-08-10 23:14] LABS: Partial Thromboplastin Time 25.6 Seconds (22.3-36.8)
[2025-08-10 23:49] LABS: Add Urine Microscopic? YES; Appearance Urine Clear (Clear); Glucose Urine UA Negative (Negative); Leukocyte Esterase Ur Trace LEU/UL (Negative); Nitrate Urine Negative (Negative); Non Pathogenic Casts 0-2; Specific Grav Ur 1.008 (1.001-1.035)
[2025-08-11] VITALS (7 sets, daily range): BP systolic 141–173; BP diastolic 71–87; PULSE 62–83; RESP 14–20; TEMP 36.6–36.8; O2SAT 96–100; BMI 35.1
--- NOTE | 2025-08-11 | ECHO_ITS ---
Patient Info Name: Celio Pompa Age: 65 years : 1960 Gender: Female Ht: 67 in Wt: 229 lbs BSA: 2.26 m2 HR: 77 bpm BP: 149 / 87 mmHg Heart Rhythm: Sinus Rhythm Technical Quality: Good Exam Date: 08/11/2025 10:47 AM Patient Status: I Admit Date: 08/11/2025 Exam Type: CA echo doppler w bubble study Complete two-dimensional, color flow and Doppler transthoracic echocardiogram is performed with agitated saline. Staff Referring Physician: Luis Enrique Lynne Cutter And Edge Trimmer: Vanesa Huber Attending Provider: Emerald Arce DO Contrast/Agitated Saline Contrast/Ag. Saline: Agitated Saline Amount: 20.00 ml Existing IV Access: Yes IV Access Condition: patent with no signs of infiltration Summary 1. Left ventricular chamber dimension is normal. 2. Left ventricular systolic function is normal, estimated at 65-70. 3. The left ventricular diastolic function is abnormal. 4. E/e' 18 is elevated. 5. Left atrial chamber dimension is moderately enlarged. 6. There is mild to moderate mitral valve regurgitation. 7. There is mild tricuspid valve regurgitation. 8. No pulmonary hypertension, estimated pulmonary arterial systolic pressure is 32 mmHg. 9. There is trace pulmonic regurgitation. Left Ventricle E/e' 18 is elevated. Left ventricular chamber dimension is normal. Left ventricular systolic function is normal, estimated at 65-70. The left ventricular diastolic function is abnormal. Right Ventricle Right ventricular chamber dimension is normal. Right ventricular systolic function is normal and with normal TAPSE 1.8 cm. Left Atria Left atrial chamber dimension is moderately enlarged. Right Atria Right atrial chamber dimension is normal. Atrial Septum Intact interatrial septum visualized by 2D and agitated saline imaging. Agitated saline injection with and without valsalva maneuver opacified right side cardiac chambers without shunt to left side cardiac chambers. Aortic Valve The aortic valve is trileaflet. There is no aortic valve stenosis. There is no aortic valve regurgitation. Pulmonic Valve There is trace pulmonic regurgitation. Mitral Valve There is no mitral valve stenosis. There is mild to moderate mitral valve regurgitation. Tricuspid Valve There is mild tricuspid valve regurgitation. No pulmonary hypertension, estimated pulmonary arterial systolic pressure is 32 mmHg. Pericardium/Pleural There is no pericardial effusion. Inferior Vena Cava Normal inferior vena cava with >50% collapse upon inspiration consistent with normal right atrial pressure, 5 mmHg. Aorta The aortic root size at the sinus of Valsalva is normal. Left Ventricular Outflow Tract Name Value Normal LVOT 2D LVOT Diameter 2.0 cm LVOT Doppler LVOT Peak Velocity 102 cm/s LVOT Peak Gradient 4 mmHg LVOT Mean Gradient 2 mmHg LVOT VTI 27 cm LVOT VTI/AV VTI Ratio 0.8 LVOT Stroke Volume 86 ml LVOT CO 4.7 l/min LVOT CI 2.1 l/min/m2 Pulmonic Valve Name Value Normal RVOT Doppler RVOT Peak Velocity 77 cm/s RVOT Peak Gradient 2 mmHg PV Doppler PV Peak Velocity 91 cm/s PV Peak Gradient 3 mmHg Mitral Valve Name Value Normal MV Diastolic Function MV E Peak Velocity 91 cm/s MV A Peak Velocity 65 cm/s MV E/A 1.4 MV Decel Time (PW) 332 ms MV Annular TDI MV E/e' (Septal) 18.4 MV E/e' (Lateral) 17.7 MV E/e' (Average) 18.0 Tricuspid Valve Name Value Normal TV Regurgitation Doppler TR Peak Velocity 262 cm/s TR Peak Gradient 27 mmHg Estimated PAP/RSVP RA Pressure 5 mmHg <=5 PA Systolic Pressure 32 mmHg <36 RV Systolic Pressure 32 mmHg <36 TV Annular TDI TV Lateral Lavern s' Velocity 13.0 cm/s >=9.5 Aorta Name Value Normal Ascending Aorta Ao Root Diameter (MM) 2.6 cm Ao Root Diam Index (MM) 1.2 cm/m2 Aortic Valve Name Value Normal AV Doppler AV Peak Velocity 146 cm/s AV Peak Gradient 9 mmHg AV Mean Gradient 5 mmHg AV VTI 36 cm AV Area (Cont Eq VTI) 2.4 cm2 >=3.0 AV Area (Cont Eq Aryan) 2.3 cm2 AV DI (Aryan) 0.70 AV Regurgitation 2D LVOT Area 3.2 cm2 Ventricles Name Value Normal LV Dimensions 2D/MM IVS Diastolic Thickness (2D) 1.1 cm 0.6-1.0 LVID Diastole (2D) 6.0 cm 3.8-5.2 LVIW Diastolic Thickness (2D) 1.0 cm 0.6-0.9 LVID Systole (2D) 3.5 cm 2.2-3.5 LVOT Diameter 2.0 cm LV Mass (2D Cubed) 262.47 g 67.00-162.00 LV Mass Index (2D Cubed) 116 g/m2 43-95 Relative Wall Thickness (2D) 0.33 <=0.42 LV Fractional Shortening/Ejection Fraction 2D/MM LV Fractional Shortening (2D) 41 % 27-45 LV EF (2D Teichholz) 71 % LV Diastolic Volume (4C MOD) 96 ml LV EF (4C MOD) 74 % LV Diastolic Volume (2C MOD) 135 ml LV EF (2C MOD) 79 % LV Diastolic Volume (BP MOD) 120 ml 46-106 LV Diastolic Volume Index (BP MOD) 53 ml/m2 29-61 LV Systolic Volume (BP MOD) 27 ml 14-42 LV Systolic Volume Index (BP MOD) 12 ml/m2 8-24 LV EF (BP MOD) 77 % 54-74 LV Diastolic Length (4C) 7.7 cm LV Systolic Length (4C) 6.2 cm LV Stroke Volume (4C MOD) 71 ml Atria Name Value Normal LA Dimensions LA Dimension (MM) 5.0 cm 2.7-3.8 LA Volume (4C A-L) 101 ml LA Volume (BP A-L) 119 ml RA Dimensions RA Systolic Major [place] Length (4C) 5.4 cm 2.2-2.8 RA Area (4C) 17.4 cm2 <=18.0 Report Signatures
[2025-08-11 00:15] LABS: Hematocrit 34.5 % (37.0-47.0); Hemoglobin 11.1 g/dL (12.0-15.0); Immature Granulocyte Percent A 0.2 % (0-0.5); Lymphocytes Absolute Auto 2.39 K/mm3 (0.9-3.2); Mean Corpuscular HGB Conc 32.2 g/dl (32-36); Mean Corpuscular Hemoglobin 29.5 pg (26-34); Mean Corpuscular Volume 91.8 fl (80-100); Nucleated Red Blood Cells Absolute Auto 0.000 K/mm3 (0.0-0.012); Nucleated Red Blood Cells Perc 0.0 % (0.0-0.2); Platelet Count Result 222 k/mm3 (150-375); Red Blood Count 3.76 M/mm3 (4.2-5.4); White Blood Count 10.1 K/mm3 (4.5-10.0)
[2025-08-11 00:39] LABS: Anisocytosis 1+
[2025-08-11 00:40] LABS: Ovalocytes Occasional; Schistocytes None Seen
[2025-08-11] MEDS: ASPIRIN 81 MG CHEWABLE TABLET 324 MG PO (01:58)
--- NOTE | 2025-08-11 03:11 | ADMGEN ---
This patient, Celio Pompa, was admitted to Virtual Bed 3rd Floor-2. Patient/family oriented to hospital policies and general routines including ID bracelet, bed and alarms, visiting hours, pain management, procedures, bathroom and other care routines, personal items, smoking policy, room service/diet, and visiting hours. Information on how to activate the Rapid Response Team has been discussed. Patient/Family are encouraged to report perceived risks to care and to ask questions if they do not understand what they are told or what they should do.
--- NOTE | 2025-08-11 05:08 | WPCEDHO ---
ED Hand Off Checklist All vitals saved:yes IV Site documented:yes All med administrations documented: yes Triage Note Triage Note pt has hx of DM2 and states she 08/10/25 21:42 has not eaten all day. patient states she felt SOB and developed a headache on the front/temporal side of head, patient states she could not recall the word oven or the food that she was cooking at the time. patient states that her headache has worsened since [id number] today but words have become clearer since incident Allergies semaglutide (From Rybels[facility]) Adverse Reaction (Intermediate, Verified 08/11/25 03:11) blurriness of vision Family History (Last Reviewed 08/11/25 @ 03:50 by Lavern Shearer, MARK) Mother Cerebrovascular accident Family history of malignant neoplasm of breast in first degree relative Father Family history of pancreatic cancer Administered/Completed Medications Discontinued Medications Aspirin (Aspirin 81 Mg Chewable Tablet) 324 mg PO ONCE STA Stop: 08/11/25 01:52 Last Admin: 08/11/25 01:58 Dose: 324 mg Documented By: LUKE Diphenhydramine HCl (Diphenhydramine Hcl Inj 50 Mg/Ml Vial) 25 mg IV PUSH ONCE STA Stop: 08/10/25 22:23 Last Admin: 08/10/25 22:48 Dose: 25 mg Documented By: LUKE Sodium Chloride (Normal Saline Iv) 1,000 mls @ 999 mls/hr IV CONT .Q1H1M STA Stop: 08/10/25 23:22 Last Infusion: 08/11/25 00:03 Dose: Infused Documented By: Admin: 08/10/25 22:53 Dose: 999 mls/hr Documented By: LUKE Prochlorperazine Edisylate (Prochlorperazine Edisylate 10 Mg/2 Ml Vial) 10 mg IV PUSH ONCE ONE Stop: 08/10/25 22:23 Last Admin: 08/10/25 22:48 Dose: 10 mg Documented By: LUKE Notes 08/11/25 03:11 General Admission Note by Caitlin Jerome This patient, Celio Pompa, was admitted to [facility] Bed 3rd Floor-2. Patient/family oriented to hospital policies and general routines including ID bracelet, bed and alarms, visiting hours, pain management, procedures, bathroom and other care routines, personal items, smoking policy, room service/diet, and visiting hours. Information on how to activate the Rapid Response Team has been discussed. Patient/Family are encouraged to report perceived risks to care and to ask questions if they do not understand what they are told or what they should do. Initialized on 08/11/25 03:11 - END OF NOTE Interventions/Assessments IV / Saline Lock, Insert Start: 08/10/25 19:16 Freq: Status: Active Protocol: Document 08/10/25 22:47 JJ (Rec: 08/10/25 22:47 [facility] [id number]) IV Assessment Peripheral Access Left Antecubital IV Catheter Access Initiated IV Insertion Date 08/10/25 IV Insertion Time 22:47 Catheter Gauge 20 IV Insertion 2 Attempts IV Site Assessment WNL IV Care and WNL Maintenance PA: Neurological Assessment Start: 08/10/25 19:16 Freq: Status: Active Protocol: Document 08/10/25 21:42 JJJ (Rec: 08/10/25 21:54 [facility] [id number]) [place] Coma Scale Eyes Open Verbal Oriented and Alert Motor Follows Commands Surya Coma Total 15 Score Neurological Assessment Level of Alert,Awake Consciousness Arousable to Verbal Orientation Oriented to Person,Oriented to Place,Oriented to Time Neurological None Symptoms Hallucination Type None Behavior Appropriate Memory Description Intact Ability to Maintain Normal Balance Facial Symmetry Symmetrical Speech Pattern Clear Ability to Swallow Normal Last Vital Signs Temperature 97.6 F 08/10/25 19:38 Pulse Rate 77 08/11/25 05:07 Respiratory Rate 14 08/11/25 05:07 Pulse Oximetry 98 08/11/25 05:07 Blood Pressure 149/87 H 08/11/25 05:07 Blood Pressure Mean 107 08/11/25 05:07 Blood Pressure Position Supine 08/11/25 05:07 Oxygen Delivery Room Air 08/10/25 21:42 Weight 104 kg 08/10/25 19:38 Last Result - Abnormals Only WBC 10.1 K/mm3 (4.5-10.0) H 08/11/25 00:00 RBC 3.76 M/mm3 (4.2-5.4) L 08/11/25 00:00 Hgb 11.1 g/dL (12.0-15.0) L 08/11/25 00:00 Hct 34.5 % (37.0-47.0) L 08/11/25 00:00 MPV 11.1 fl (7.4-10.4) H 08/11/25 00:00 Absolute Neuts (auto) 6.9 K/mm3 (1.3-6.7) H 08/11/25 00:00 Creatinine 0.69 mg/dL (0.7-1.0) L 08/10/25 22:54 Glucose 152 mg/dL (65-110) H 08/10/25 22:54 POC Capillary Glucose 131 mg/dl (65-105) H 08/10/25 19:45 Total Protein 8.5 g/dL (6.3-8.2) H 08/10/25 22:54 Leukocyte Esterase Rfl Trace ANUSHKA/UL (Negative) H 08/10/25 22:54 Most Recent Suicide Severity Rating Suicide Severity Rating NO RISK INDICATED 08/11/25 03:10
--- NOTE | 2025-08-11 08:17 | PM.IMHP2 ---
H&P: HPI History of Present Illness Date/Time: 08/11/25 08:17 Chief Complaint: Headache Narrative: Celio Pompa is a 65-year-old female with a past medical history of T2DM (without long-term use of insulin), ELDER, essential HTN, multiple pulmonary nodules, obesity who presents to the hospital with complaints of a headache that started 2 hours prior to arrival to ED. reports that at the time of initiation of the headache, the patient was finding difficulty with expressing words, but denies any slurring of words or nonsensical verbiage. These symptoms lasted approximately 3 minutes along with the associated left sided headache. She denies any extremity weakness or focal numbness. She also denied any chest pain, shortness of breath, n/v, abd pain or dizziness. Upon arrival to ED, she did continue to have a left sided headache but denied any continuation of speech symptoms. No recent illnesses, long distance travel, or known sick contacts. No history of CVA. At time of exam she denies any numbness, tingling, aphasia or headache. ED Workup: 97.6F, 73HR, 14RR, 149/87, 98% WBC 10.1, Hgb 11.1, Hct 34.5, Plt 222, BUN 11, Cr 0.69, Na 138, K 3.5, CO2 26, Glucose 152, LFTs wnl UA: not indicative of infection Head/Neck CTA: Normal aging brain. No aneurysm or significant intracranial internal stenosis. 0% stenosis of the proximal internal carotid arteries relative to normal distal artery lumen diameters (NASCET criteria). EKG: Sinus rhythm with sinus arrhythmia, rate 68, QT 416 Review of Systems Review of Systems: All systems reviewed & are unremarkable except as noted in HPI and below PMFSH Past Medical History Medical History Cervical radiculopathy at C8 Spinal stenosis of lumbosacral region (11/25/17) Surgical History Surgical History History of back surgery Family History Family History Mother Cerebrovascular accident Family history of malignant neoplasm of breast in first degree relative Father Family history of pancreatic cancer Social History Social History Smoking status: Never smoker Second hand tobacco smoke exposure: No Alcohol intake: never Drinks per week: 1 Substance use: never Substance use type: does not use Lack of Transportation: No Lack of Food: Never True Current Housing: I Have Housing Concerned About Future Housing: No Difficulty Paying Gas/Electric Bills: No Difficulty Paying for Meds: No Currently Unemployed: No Education: Bachelor's Degree Difficulty w/ Childcare or Family Care: No Living arrangements: with family Occupation/Education: retired Spiritual care concerns: No Meds Home Medications and Allergies Home Medications ?Medication ?Instructions ?Recorded ?Confirmed ?Type flash glucose scanning reader #1 ea 09/06/22 08/11/25 Rx (FreeStyle Vivi 2 [place]) flash glucose sensor (FreeStyle #10 ea 09/06/22 08/11/25 Rx Vivi 2 Sensor kit) acetaminophen 650 mg 650 mg PO Q12H 05/22/24 08/11/25 History tablet,extended release (Tylenol Arthritis Pain) glucosamine sulfate 500 mg tablet 500 mg PO DAILY 05/22/24 08/11/25 History (Glucosamine) lactobacillus combination no.4 3 3,000 mmu cells PO DAILY 05/22/24 08/11/25 History billion cell capsule (Probiotic) lysine 500 mg tablet 500 mg PO DAILY 05/22/24 08/11/25 History omega 1-tka-dcv-fish oil 300 1 cap PO DAILY 05/22/24 08/11/25 History mg-1,000 mg capsule vitamin B12 0.5 mg-folic acid 1 mg 1 tablet PO DAILY 05/22/24 08/11/25 History tablet blood sugar diagnostic (Accu-Chek #100 ea 04/30/25 08/11/25 Rx Guide test strips) blood-glucose meter (Accu-Chek #1 ea 04/30/25 08/11/25 Rx Guide Glucose Meter) metformin 500 mg tablet,extended 1,000 mg (2 x 500 mg) PO BID #360 05/05/25 08/11/25 Rx release 24 hr tabs celecoxib 100 mg capsule 100 mg PO BID #180 caps 05/14/25 08/11/25 Rx cholecalciferol (vitamin D3) 25 25 mcg PO DAILY 06/10/25 08/11/25 History mcg (1,000 unit) capsule ibuprofen 200 mg tablet 400 mg PO ONCE PRN pain 06/10/25 08/11/25 History atorvastatin 80 mg tablet (Lipitor) 80 mg PO QHS #90 tabs 06/11/25 08/11/25 Rx tizanidine 2 mg tablet See Rx Instructions .Route 06/12/25 08/11/25 Rx .COMPLEX #270 tabs azithromycin 250 mg tablet See Rx Instructions PO .COMPLEX #6 06/23/25 08/11/25 Rx tabs amlodipine 5 mg-olmesartan 40 mg 1 tablet PO DAILY #90 tabs 07/14/25 08/11/25 Rx tablet furosemide 40 mg tablet 40 mg PO PRN PRN monitor blood 08/11/25 08/11/25 History pressure valacyclovir 500 mg tablet 500 mg PO PRN 08/11/25 08/11/25 History Allergies Allergy/AdvReac Type Severity Reaction Status Date / Time semaglutide (From [facility]) AdvReac Intermediate blurriness Verified 08/11/25 03:11 of vision Vital Signs Vital Signs - 24 hr 08/10/25 19:38 08/10/25 21:42 08/10/25 22:30 Temperature 97.6 F Pulse Rate 73 70 58 L Respiratory Rate 21 H 16 18 Blood Pressure 185/82 H 180/82 H 167/90 H Pulse Oximetry 99 70 L 97 Oxygen Delivery Room Air Room Air 08/11/25 05:07 08/11/25 06:00 Temperature 97.9 F Pulse Rate 77 68 Respiratory Rate 14 20 Blood Pressure 149/87 H 152/71 H Pulse Oximetry 98 98 Oxygen Delivery Exam Narrative: Gen - well appearing female in no acute respiratory distress who is nontoxic-appearing lying semi recumbent in bed HEENT - normocephalic. Atraumatic. Pupils equal round and reactive. Extraocular motions intact. Moist mucous membranes. Tongue was midline. No facial asymmetry. Neck - neck was supple. No dominant adenopathy, thyromegaly or masses. 2+ carotid upstrokes without bruits. Chest - lungs are clear to auscultation bilaterally. No wheezes or crackles. CV - heart was regular rate and rhythm. S1-S2. No murmurs gallops or rubs. Abd - abdomen was soft. Nontender. Nondistended. Positive bowel sounds. No organomegaly or masses. Ext - no clubbing, cyanosis or edema. 2+ DP pulses bilaterally. Neuro - patient is alert and oriented x4. Strength is 5/5 in both upper and lower extremities. Cranial nerves 2-12 are intact. Speech is clear. Psych - normal mood and affect. Patient is pleasant and cooperative. Skin - warm and dry. No rashes noted. Results Labs Labs: Short CBC 08/11/25 Range/Units 00:00 WBC 10.1 H (4.5-10.0) K/mm3 Hgb 11.1 L (12.0-15.0) g/dL Hct 34.5 L (37.0-47.0) % Plt Count 222 (150-375) k/mm3 BMP 08/10/25 22:54 Sodium 138 Potassium 3.5 Chloride 104 Carbon Dioxide 26 BUN 11 Creatinine 0.69 L Glucose 152 H Calcium 9.6 Liver Function 08/10/25 Range/Units 22:54 Total Bilirubin 0.8 (0.2-1.3) mg/dL AST 27 (14-36) U/L ALT 26 (6-35) U/L Alkaline Phosphatase 83 (38-126) U/L Albumin 4.7 (3.5-5.1) g/dL Urine 08/10/25 Range/Units 22:54 Urine Color Yellow (Yellow) Urine Appearance Clear (Clear) Urine pH 7.0 (5.0-9.0) Ur Specific [place] 1.008 (1.001-1.035) Urine Protein Negative (Negative) mg/dL Urine Glucose (UA) Negative (Negative) mg/dL Assessment and Plan Assessment and plan (1) Brain TIA: Code(s): G45.9 - Transient cerebral ischemic attack, unspecified Status: Acute Assessment and Plan: Lipid panel wnl Head/neck CTA: Normal aging brain. No aneurysm or significant intracranial internal stenosis. 0% stenosis of the proximal internal carotid arteries relative to normal distal artery lumen diameters (NASCET criteria). MRI, Echo ordered Continue Atorvastatin 80mg Continue 81 mg aspirin daily Initiate stroke protocol, NIH Stroke Scale, neuro's q.4 hours Monitor blood pressure, allow for permissive hypertension Telemetry monitoring Monitor blood glucose PT/OT eval and treat Neurology consulted, appreciate assistance and recommendations (2) Dysphasia: Code(s): R47.02 - Dysphasia Status: Acute Assessment and Plan: See above (3) Type 2 diabetes mellitus with diabetic neuropathy, without long-term current use of insulin: Code(s): E11.40 - Type 2 diabetes mellitus with diabetic neuropathy, unspecified Status: Acute Assessment and Plan: Hypoglycemia protocol POC blood glucose ACHS Home medication - Metformin - will hold Glucoses normally well controlled, not on insulin at home A1C 6.4 (In 06/2025) (4) Mixed hyperlipidemia: Code(s): E78.2 - Mixed hyperlipidemia Status: Acute Assessment and Plan: Continue statin (5) Essential hypertension: Code(s): I10 - Essential (primary) hypertension Status: Acute Assessment and Plan: Continue at home medications (6) Pulmonary nodules/lesions, multiple: Code(s): R91.8 - Other nonspecific abnormal finding of lung field Status: Acute Assessment and Plan: Chest CT 11/19/2021: Stable approximately 4 mm middle lobe nodule since 11/18/2021. No significant new or enlarging pulmonary mass lesion. (7) Obesity: Qualifiers: Body mass index: BMI 38.0-38.9 Obesity classification: adult class 2 (BMI 35 - 39.9) Obesity type: due to excess calories Serious obesity comorbidity presence: with serious comorbidity Qualified Code(s): E66.01 - Morbid (severe) obesity due to excess calories; Z68.38 - Body mass index [BMI] 38.0-38.9, adult Code(s): E66.9 - Obesity, unspecified Status: Acute Assessment and Plan: BMI 35.1Kg
[2025-08-11] MEDS: ASPIRIN 81 MG CHEWABLE TABLET PO (08:41)
[2025-08-11 10:22] LABS: Cholesterol 175 mg/dL (0-200); HDL Direct 66 mg/dL; Triglycerides 81 mg/dL (<150)
[2025-08-11] MEDS: OLMESARTAN MEDOXOMIL 20 MG TABLET 40 MG PO (13:22)
[2025-08-11] MEDS: ACETAMINOPHEN 325 MG TABLET 650 MG PO ×2 (13:22→21:52)
[2025-08-11] MEDS: FOLIC ACID 1 MG TABLET PO (13:22)
[2025-08-11] MEDS: CYANOCOBALAMIN 500 MCG TABLET PO (13:22)
--- NOTE | 2025-08-11 14:36 | WPDNEURCNPN ---
Assessment and Plan Assessment and plan (1) Brain TIA: Code(s): G45.9 - Transient cerebral ischemic attack, unspecified Status: Acute Plan 1. TIA 2. Diabetes mellitus. In addition to the all ongoing comorbid conditions patient will be started on aspirin and Plavix While other investigations are being carried out. Consult date: 08/11/25 HPI: Celio Pompa is a 65 year old femaleHas been admitted to the hospital through the emergency room for the complaints of word finding difficulties along with headaches. 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 The whole episode lasted for about an hour then she developed left-sided headache. Patient has ongoing history of 1. Diabetes mellitus 2. Hypertension 3. Hypercholesterolemia. She has been taking multiple medications particularly ibuprofen 200mg 2 of them p.r.n., and furosemide 40mg p.r.n.. Reportedly she is allergic to semaglutide. She does have a ongoing history of in the past 1. Cervical radiculopathy at C8 2. Spinal stenosis of lumbosacral region 3. History of low back surgery 4. No history of alcohol consumption. On initial exam in the emergency room she had no focal neurological deficit. Her vital signs were normal except blood pressure 185/82, CBC was normal BMP with blood sugar of 152 and mast scan normal head and neck CTA revealed no aneurysm or any vascular involvement, echocardiogram has also been done which reveals left atrial chamber moderately enlarged with mild to moderate mitral valve regurgitation and mild tricuspid valve regurgitation, Review of Systems Review of Systems: All systems reviewed & are unremarkable except as noted in HPI and below PMFSH Past Medical History Medical History Cervical radiculopathy at C8 Spinal stenosis of lumbosacral region (11/25/17) Surgical History Surgical History History of back surgery Family History Family History Mother Cerebrovascular accident Family history of malignant neoplasm of breast in first degree relative Father Family history of pancreatic cancer Social History Social History Smoking status: Never smoker Second hand tobacco smoke exposure: No Alcohol intake: never Drinks per week: 1 Substance use: never Substance use type: does not use Lack of Transportation: No Lack of Food: Never True Current Housing: I Have Housing Concerned About Future Housing: No Difficulty Paying Gas/Electric Bills: No Difficulty Paying for Meds: No Currently Unemployed: No Education: Bachelor's Degree Difficulty w/ Childcare or Family Care: No Living arrangements: with family Occupation/Education: retired Spiritual care concerns: No Meds Home Medications and Allergies Home Medications ?Medication ?Instructions ?Recorded ?Confirmed ?Type flash glucose scanning reader #1 ea 09/06/22 08/11/25 Rx (FreeStyle Vivi 2 [place]) flash glucose sensor (FreeStyle #10 ea 09/06/22 08/11/25 Rx Vivi 2 Sensor kit) acetaminophen 650 mg 650 mg PO Q12H 05/22/24 08/11/25 History tablet,extended release (Tylenol Arthritis Pain) glucosamine sulfate 500 mg tablet 500 mg PO DAILY 05/22/24 08/11/25 History (Glucosamine) lactobacillus combination no.4 3 3,000 mmu cells PO DAILY 05/22/24 08/11/25 History billion cell capsule (Probiotic) lysine 500 mg tablet 500 mg PO DAILY 05/22/24 08/11/25 History omega 3-trd-ppk-fish oil 300 1 cap PO DAILY 05/22/24 08/11/25 History mg-1,000 mg capsule vitamin B12 0.5 mg-folic acid 1 mg 1 tablet PO DAILY 05/22/24 08/11/25 History tablet blood sugar diagnostic (Accu-Chek #100 ea 04/30/25 08/11/25 Rx Guide test strips) blood-glucose meter (Accu-Chek #1 ea 04/30/25 08/11/25 Rx Guide Glucose Meter) metformin 500 mg tablet,extended 1,000 mg (2 x 500 mg) PO BID #360 05/05/25 08/11/25 Rx release 24 hr tabs celecoxib 100 mg capsule 100 mg PO BID #180 caps 05/14/25 08/11/25 Rx cholecalciferol (vitamin D3) 25 25 mcg PO DAILY 06/10/25 08/11/25 History mcg (1,000 unit) capsule ibuprofen 200 mg tablet 400 mg PO ONCE PRN pain 06/10/25 08/11/25 History atorvastatin 80 mg tablet (Lipitor) 80 mg PO QHS #90 tabs 06/11/25 08/11/25 Rx tizanidine 2 mg tablet See Rx Instructions .Route 06/12/25 08/11/25 Rx .COMPLEX #270 tabs azithromycin 250 mg tablet See Rx Instructions PO .COMPLEX #6 06/23/25 08/11/25 Rx tabs amlodipine 5 mg-olmesartan 40 mg 1 tablet PO DAILY #90 tabs 07/14/25 08/11/25 Rx tablet furosemide 40 mg tablet 40 mg PO PRN PRN monitor blood 08/11/25 08/11/25 History pressure valacyclovir 500 mg tablet 500 mg PO PRN 08/11/25 08/11/25 History Allergies Allergy/AdvReac Type Severity Reaction Status Date / Time semaglutide (From [facility]) AdvReac Intermediate blurriness Verified 08/11/25 03:11 of vision Vital Signs Vital Signs - 24 hr 08/10/25 19:38 08/10/25 21:42 08/10/25 22:30 Temperature 36.4 C Pulse Rate 73 70 58 L Respiratory Rate 21 H 16 18 Blood Pressure 185/82 H 180/82 H 167/90 H Pulse Oximetry 99 70 L 97 Oxygen Delivery Room Air Room Air 08/11/25 05:07 08/11/25 06:00 08/11/25 08:00 Temperature 36.6 C Pulse Rate 77 68 70 Respiratory Rate 14 20 Blood Pressure 149/87 H 152/71 H Pulse Oximetry 98 98 Oxygen Delivery 08/11/25 08:00 Temperature Pulse Rate Respiratory Rate Blood Pressure Pulse Oximetry Oxygen Delivery Room Air Exam Narrative: revealed her to be awake alert cooperative in no obvious acute distress, head normocephalic with no cranial bruits, ear nose throat examination normal, neck supple with no cervical bruit no thyromegaly no lymphadenopathy, heart regular, lungs clear to auscultation with no rhonchi or crepitations, abdomen is soft with normal bowel sounds, neurologically she is awake alert oriented, his speech not dysphasic not dysarthric not dysphonic, pupils round regular feels the vision full extraocular movements full facial sensation intact face symmetrical tongue midline uvula midline motor examination revealed her to have normal strength and tone in upper and lower extremities, deep tendon reflexes symmetrical plantars are downgoing there is no evidence of gross cerebellar deficit. Results Labs 08/11/25 00:00 08/10/25 22:54 Labs: Short CBC 08/11/25 Range/Units 00:00 WBC 10.1 H (4.5-10.0) K/mm3 Hgb 11.1 L (12.0-15.0) g/dL Hct 34.5 L (37.0-47.0) % Plt Count 222 (150-375) k/mm3 BMP 08/10/25 22:54 Sodium 138 Potassium 3.5 Chloride 104 Carbon Dioxide 26 BUN 11 Creatinine 0.69 L Glucose 152 H Calcium 9.6 Liver Function 08/10/25 Range/Units 22:54 Total Bilirubin 0.8 (0.2-1.3) mg/dL AST 27 (14-36) U/L ALT 26 (6-35) U/L Alkaline Phosphatase 83 (38-126) U/L Albumin 4.7 (3.5-5.1) g/dL Urine 08/10/25 Range/Units 22:54 Urine Color Yellow (Yellow) Urine Appearance Clear (Clear) Urine pH 7.0 (5.0-9.0) Ur Specific [place] 1.008 (1.001-1.035) Urine Protein Negative (Negative) mg/dL Urine Glucose (UA) Negative (Negative) mg/dL
[2025-08-11] MEDS: ATORVASTATIN 40 MG TABLET 80 MG PO (18:20)
[2025-08-12] VITALS: PULSE 64
[2025-08-12 04:00] VITALS: PULSE 57
[2025-08-12 06:00] VITALS: BP 158/78; PULSE 64; RESP 20; TEMP 36.2; O2SAT 99
[2025-08-12 08:00] VITALS: PULSE 99
[2025-08-12] MEDS: OLMESARTAN MEDOXOMIL 20 MG TABLET 40 MG PO (09:23)
[2025-08-12] MEDS: CLOPIDOGREL BISULFATE 75 MG TABLET PO (09:23)
[2025-08-12] MEDS: FOLIC ACID 1 MG TABLET PO (09:23)
[2025-08-12] MEDS: ASPIRIN 81 MG CHEWABLE TABLET PO (09:23)
[2025-08-12] MEDS: CYANOCOBALAMIN 500 MCG TABLET PO (09:23)
[2025-08-12] MEDS: CHOLECALCIFEROL (VITAMIN D3) 25 MCG (1,000 UNITS) TABLET PO (09:23)
[2025-08-12] MEDS: OMEGA 3 POLYUNSAT FATTY ACIDS 1 GM CAP PO (09:23)
--- NOTE | 2025-08-12 11:36 | WPDNEUROPN ---
Subjective Date/time seen: 08/12/25 11:36 Interval history: receiving aspirin and Plavix with negative CT of the head and neck, normal MRI of the brain, can be discharged on aspirin and Plavix considering the left atrial chamber dimension is moderately enlarged along with mild to moderate mitral valve regurgitation will benefit from a Cardiology opinion. Objective Data Vital Signs Vital Signs: Vital Signs - 24 hr 08/11/25 14:00 08/11/25 17:30 08/11/25 19:56 Temperature 36.8 C 36.6 C Pulse Rate 73 83 66 Respiratory Rate 18 20 Blood Pressure 141/84 H 173/81 H Pulse Oximetry 96 100 Oxygen Delivery 08/11/25 20:00 08/11/25 20:00 08/12/25 00:00 Temperature Pulse Rate 62 64 Respiratory Rate Blood Pressure Pulse Oximetry Oxygen Delivery Room Air 08/12/25 04:00 08/12/25 06:00 08/12/25 08:00 Temperature 36.2 C L Pulse Rate 57 L 64 Respiratory Rate 20 Blood Pressure 158/78 H Pulse Oximetry 99 Oxygen Delivery Room Air 08/12/25 08:00 08/12/25 09:30 Temperature Pulse Rate 99 Respiratory Rate Blood Pressure Pulse Oximetry Oxygen Delivery Room Air Intake/Output Intake/Output: Intake & Output 08/09/25 08/10/25 08/11/25 08/12/25 23:59 23:59 23:59 23:59 Intake Total 1960 544 Balance 1960 544 Meds/Results Medications: Active Medications Generic Name Dose Route Start Last Admin Trade Name Freq PRN Reason Stop Dose Admin Acetaminophen 650 mg 08/11/25 12:00 08/11/25 21:52 Acetaminophen 325 Mg Tablet PO 650 mg Q12H YANIRA Administration Amlodipine Besylate 5 mg 08/11/25 13:25 08/12/25 09:23 Amlodipine Besylate 5 Mg Tablet BY MOUTH 5 mg DAILY YANIRA Administration Aspirin 81 mg 08/11/25 08:00 08/12/25 09:23 Aspirin 81 Mg Chewable Tablet PO 81 mg DAILY@0800 YANIRA Administration Atorvastatin Calcium 80 mg 08/11/25 18:00 08/11/25 18:20 Atorvastatin 40 Mg Tablet PO 80 mg QPM YANIRA Administration Clopidogrel Bisulfate 75 mg 08/12/25 09:00 08/12/25 09:23 Clopidogrel Bisulfate 75 Mg Tablet PO 75 mg QAM YANIRA Administration Cyanocobalamin 500 mcg 08/11/25 12:20 08/12/25 09:23 Cyanocobalamin 500 Mcg Tablet PO 500 mcg QAM YANIRA Administration Dextrose 12.5 gm 08/11/25 08:31 Dextrose 50% 25 Gm/50 Ml Syringe IV PUSH PRN PRN Hypoglycemia Protocol Fish Oil 1 gm 08/12/25 09:00 08/12/25 09:23 [place] 3 Polyunsat Fatty Acids 1 Gm Cap PO 1 gm DAILY YANIRA Administration Folic Acid 1 mg 08/11/25 12:25 08/12/25 09:23 Folic Acid 1 Mg Tablet PO 1 mg QAM YANIRA Administration Furosemide 40 mg 08/11/25 11:54 Furosemide 40 Mg Tablet PO PRN PRN monitor blood pressure Glucagon 1 mg 08/11/25 08:31 Glucagon For Inj 1 Mg Vial IM PRN PRN Hypoglycemia Protocol Glucose 15 gm 08/11/25 08:31 Glucose Oral Gel 15 Gm Of Glucse In 37.5 Gm Tube PO PRN PRN Hypoglycemia Protocol Dextrose 1,000 mls @ 100 mls/hr 08/11/25 08:31 Dextrose 5% 1,000 Ml IVPB PRN PRN Hypoglycemia Protocol Ibuprofen 400 mg 08/11/25 11:54 Ibuprofen 400 Mg Tablet PO On Hold: 08/11/25 14:53 ONCE PRN Pain Non-Formulary Medication 1 each 08/11/25 12:16 Nonformulary Nutritional Supplement XX 08/12/25 12:15 PRN PRN PROTOCOL Olmesartan 40 mg 08/11/25 12:20 08/12/25 09:23 Olmesartan Medoxomil 20 Mg Tablet PO 40 mg QAM YANIRA Administration Perflutren Lipid Microsphere 0 ml 08/11/25 01:52 Perflutren Lipid Microspheres 1.5 Ml Vial Diluted To 10 Ml Total Volume IV PUSH 08/14/25 01:52 ONCE PRN adequate visualization Protocol Tizanidine HCl 2 mg 08/11/25 13:00 Tizanidine Hcl 2 Mg Tablet BY MOUTH TID PRN MUSCLE SPASM Vitamin D 25 mcg 08/12/25 09:00 08/12/25 09:23 Cholecalciferol (Vitamin D3) 25 Mcg (1,000 Units) Tablet PO 25 mcg DAILY YANIRA Administration Radiology Results: ITS Impressions Head/Neck CTA 08/11/25 07:06 IMPRESSION: 1. Normal aging brain. 2. No aneurysm or significant intracranial internal stenosis. 3. 0% stenosis of the proximal internal carotid arteries relative to normal distal artery lumen diameters (NASCET criteria). Brain MRI 08/11/25 18:18 IMPRESSION: 1. No evidence of acute ischemia or space-occupying lesions or abnormal enhancement. 2. No significant chronic ischemic change. No ventriculomegaly.
[2025-08-12 12:00] VITALS: PULSE 71
[2025-08-12] MEDS: ACETAMINOPHEN 325 MG TABLET 650 MG PO (12:22)
--- NOTE | 2025-08-12 13:45 | PM.CNCAR ---
Assessment and Plan Assessment and plan (1) Brain TIA: Code(s): G45.9 - Transient cerebral ischemic attack, unspecified Status: Acute Assessment and Plan: presented with dysphasia and headache CT head and MRI head without acute intracranial process CTA of the neck without ICA stenosis neuro has seen and patient placed on aspirin 81 mg daily and plavix 75 mg daily will plan OP tele monitor to look for any underlying arryhtmia (2) Essential hypertension: Code(s): I10 - Essential (primary) hypertension Status: Acute Assessment and Plan: blood pressure above goal will have patient monitor at home as trending down continue amlodipine 10 mg daily and olmesartan 40 mg daily if BP remains elevated consider addition of HCTZ 25 mg daily (3) Mixed hyperlipidemia: Code(s): E78.2 - Mixed hyperlipidemia Status: Acute Assessment and Plan: continue on atorvastatin 80 mg daily (4) Bradycardia: Code(s): R00.1 - Bradycardia, unspecified Status: Acute Assessment and Plan: her HR has been in the upper 30s and 40s with sleep currently on no AV silvia blocking agents and would avoid would benefit from repeat sleep study as history of ELDER, but no longer using cpap d/t 50lb weight loss Op tele monitor has been arranged (5) Type 2 diabetes mellitus with diabetic neuropathy, without long-term current use of insulin: Code(s): E11.40 - Type 2 diabetes mellitus with diabetic neuropathy, unspecified Status: Acute Assessment and Plan: glycemic control as per primary team (6) Obstructive sleep apnea (adult) (pediatric): Code(s): G47.33 - Obstructive sleep apnea (adult) (pediatric) Status: Acute Assessment and Plan: has not used cpap for 5 years in setting of 50 lb weight loss she does have LAE and bradycardia with sleep would recommend repeat OP sleep study (7) Mitral regurgitation: Code(s): I34.0 - Nonrheumatic mitral (valve) insufficiency Status: Acute Assessment and Plan: mild to moderate on echo known of since childhood EF normal will continue to monitor Plan patient stable from CV standpoint for dc home will need OP tele monitoring and BP monitoring would recommend OP sleep study History of Present Illness History of Present Illness Consult date/time: 08/12/25 13:45 Requesting physician: Luis Enrique Lynne PAG[facility] Consult reason: Other Reason For Visit: TIA Narrative: Celio Pompa is a 65 y.o. female with a PMH of HTN, DM and obesity who presented to the ER with reports of dysphasia. She reports she was trying to tell her about the food on the stove, but couldn't find the words and was just pointing at it trying to speak. She then developed a horrible frontal headache and came to the ER. In the ER her symptoms began to resolve and after medication her headache also resolved. She had CT head that was negative for acute infarct, but suspicion for TIA. An echo was done that showed mild-mod MR and left atrial enlargement. She states the MR is not new and has been present since childhood. No other cardiac history. She denies any chest pain or pressure. No dizziness or palpitations. No reports of any shortness of breath. We were asked to see and evaluate for possible OP tele monitoring. Review of Systems Review of Systems: All systems reviewed & are unremarkable except as noted in HPI and below PMFSH Past Medical History Medical History Cervical radiculopathy at C8 Spinal stenosis of lumbosacral region (11/25/17) Surgical History Surgical History History of back surgery Family History Family History Mother Cerebrovascular accident Family history of malignant neoplasm of breast in first degree relative Father Family history of pancreatic cancer Social History Social History Smoking status: Never smoker Second hand tobacco smoke exposure: No Alcohol intake: never Drinks per week: 1 Substance use: never Substance use type: does not use Lack of Transportation: No Lack of Food: Never True Current Housing: I Have Housing Concerned About Future Housing: No Difficulty Paying Gas/Electric Bills: No Difficulty Paying for Meds: No Currently Unemployed: No Education: Bachelor's Degree Difficulty w/ Childcare or Family Care: No Living arrangements: with family Occupation/Education: retired Spiritual care concerns: No Meds Home Medications and Allergies Home Medications ?Medication ?Instructions ?Recorded ?Confirmed ?Type flash glucose scanning reader #1 ea 09/06/22 08/11/25 Rx ([email or web address] Vivi 2 [place]) flash glucose sensor (FreeStyle #10 ea 09/06/22 08/11/25 Rx Vivi 2 Sensor kit) acetaminophen 650 mg 650 mg PO Q12H 05/22/24 08/11/25 History tablet,extended release (Tylenol Arthritis Pain) glucosamine sulfate 500 mg tablet 500 mg PO DAILY 05/22/24 08/11/25 History (Glucosamine) lactobacillus combination no.4 3 3,000 mmu cells PO DAILY 05/22/24 08/11/25 History billion cell capsule (Probiotic) lysine 500 mg tablet 500 mg PO DAILY 05/22/24 08/11/25 History omega 5-gvm-fmm-fish oil 300 1 cap PO DAILY 05/22/24 08/11/25 History mg-1,000 mg capsule vitamin B12 0.5 mg-folic acid 1 mg 1 tablet PO DAILY 05/22/24 08/11/25 History tablet blood sugar diagnostic (Accu-Chek #100 ea 04/30/25 08/11/25 Rx Guide test strips) blood-glucose meter (Accu-Chek #1 ea 04/30/25 08/11/25 Rx Guide Glucose Meter) metformin 500 mg tablet,extended 1,000 mg (2 x 500 mg) PO BID #360 05/05/25 08/11/25 Rx release 24 hr tabs celecoxib 100 mg capsule 100 mg PO BID #180 caps 05/14/25 08/11/25 Rx cholecalciferol (vitamin D3) 25 25 mcg PO DAILY 06/10/25 08/11/25 History mcg (1,000 unit) capsule ibuprofen 200 mg tablet 400 mg PO ONCE PRN pain 06/10/25 08/11/25 History atorvastatin 80 mg tablet (Lipitor) 80 mg PO QHS #90 tabs 06/11/25 08/11/25 Rx tizanidine 2 mg tablet See Rx Instructions .Route 06/12/25 08/11/25 Rx .COMPLEX #270 tabs azithromycin 250 mg tablet See Rx Instructions PO .COMPLEX #6 06/23/25 08/11/25 Rx tabs amlodipine 5 mg-olmesartan 40 mg 1 tablet PO DAILY #90 tabs 07/14/25 08/11/25 Rx tablet furosemide 40 mg tablet 40 mg PO PRN PRN monitor blood 08/11/25 08/11/25 History pressure valacyclovir 500 mg tablet 500 mg PO PRN 08/11/25 08/11/25 History Allergies Allergy/AdvReac Type Severity Reaction Status Date / Time [facility] AdvReac Intermediate blurriness Verified 08/11/25 03:11 of vision Vital Signs Vital Signs - 24 hr 08/11/25 14:00 08/11/25 17:30 08/11/25 19:56 Temperature 36.8 C 36.6 C Pulse Rate 73 83 66 Respiratory Rate 18 20 Blood Pressure 141/84 H 173/81 H Pulse Oximetry 96 100 Oxygen Delivery 08/11/25 20:00 08/11/25 20:00 08/12/25 00:00 Temperature Pulse Rate 62 64 Respiratory Rate Blood Pressure Pulse Oximetry Oxygen Delivery Room Air 08/12/25 04:00 08/12/25 06:00 08/12/25 08:00 Temperature 36.2 C L Pulse Rate 57 L 64 Respiratory Rate 20 Blood Pressure 158/78 H Pulse Oximetry 99 Oxygen Delivery Room Air 08/12/25 08:00 08/12/25 09:30 08/12/25 11:23 Temperature Pulse Rate 99 Respiratory Rate Blood Pressure Pulse Oximetry Oxygen Delivery Room Air Room Air Exam Const: General: comfortable and no acute distress Eyes: Sclera: sclerae normal Neck: Neck: supple and No no JVD Carotids: no bruits Resp: Effort & Inspection: normal respiratory effort Auscultation: clear to auscultation bilaterally Cardio: Rate: regular rate Rhythm: regular rhythm Heart sounds: no gallops, no murmurs and no rubs Skin: General skin exam: normal color Neuro: Speech: normal speech Extrem: General: normal to inspection Psych: Mental Status: mental status grossly normal Affect: normal affect Results Labs and Meds 08/11/25 00:00 08/10/25 22:54 Lab results: Intake and Output 08/11/25 08/12/25 08/12/25 23:59 07:59 15:59 Intake Total 480 200 688 Balance 480 200 688 Intake: Oral 480 200 688 Other: # Unmeasured Voids 3 2 Imaging and Cardiology Echo: report reviewed (EF of 65-70% with mild to moderate mitral regurgitation and left atrial enlargement ) EKG results: image reviewed EKG Interpretation EKG: sinus rhythm and normal ST/T EKG shows: sinus rhythm
[2025-08-12 14:00] VITALS: BP 153/69; PULSE 73; RESP 18; TEMP 36.5; O2SAT 95
--- NOTE | 2025-08-12 14:34 | P.DS_ITS ---
DS: Admitting Diagnosis Discharge Date 08/12/2025 Admitting Diagnosis TIA DS: Discharge Diagnosis Discharge Diagnosis (1) Brain TIA: Code(s): G45.9 - Transient cerebral ischemic attack, unspecified Status: Acute Assessment and Plan: * Lipid panel wnl * Head/neck CTA: Normal aging brain. No aneurysm or significant intracranial internal stenosis. 0% stenosis of the proximal internal carotid arteries relative to normal distal artery lumen diameters (NASCET criteria). * MRI, Echo ordered * Continue Atorvastatin 80mg * Continue 81 mg aspirin daily * Initiate stroke protocol, NIH Stroke Scale, neuro's q.4 hours * Monitor blood pressure, allow for permissive hypertension * Telemetry monitoring * Monitor blood glucose * PT/OT eval and treat * Neurology consulted, appreciate assistance and recommendations (2) Dysphasia: Code(s): R47.02 - Dysphasia Status: Acute Assessment and Plan: * See above (3) Type 2 diabetes mellitus with diabetic neuropathy, without long-term current use of insulin: Code(s): E11.40 - Type 2 diabetes mellitus with diabetic neuropathy, unspecified Status: Acute Assessment and Plan: * Hypoglycemia protocol * POC blood glucose ACHS * Home medication - Metformin - will hold * Glucoses normally well controlled, not on insulin at home * A1C 6.4 (In 06/2025) (4) Mixed hyperlipidemia: Code(s): E78.2 - Mixed hyperlipidemia Status: Acute Assessment and Plan: * Continue statin (5) Essential hypertension: Code(s): I10 - Essential (primary) hypertension Status: Acute Assessment and Plan: * Continue at home medications (6) Pulmonary nodules/lesions, multiple: Code(s): R91.8 - Other nonspecific abnormal finding of lung field Status: Acute Assessment and Plan: * Chest CT 11/19/2021: Stable approximately 4 mm middle lobe nodule since 11/18/2021. No significant new or enlarging pulmonary mass lesion. (7) Obesity: Qualifiers: Body mass index: BMI 38.0-38.9 Obesity classification: adult class 2 (BMI 35 - 39.9) Obesity type: due to excess calories Serious obesity comorbidity presence: with serious comorbidity Qualified Code(s): E66.01 - Morbid (severe) obesity due to excess calories; Z68.38 - Body mass index [BMI] 38.0-38.9, adult Code(s): E66.9 - Obesity, unspecified Status: Acute Assessment and Plan: * BMI 35.1Kg DS: Summary Hospital Course Reason for hospitalization: Headache Hospital Course: 65-year-old female with a history of type 2 diabetes mellitus, hypertension, mixed hyperlipidemia, obesity, obstructive sleep apnea, and multiple stable pulmonary nodules who was admitted following an episode of acute-onset dysphasia and left-sided headache. The event occurred while she was cooking, with her noting difficulty expressing words but no slurred or nonsensical speech. The episode lasted approximately three minutes, followed by a persistent left- sided headache. She denied any extremity weakness, numbness, chest pain, shortness of breath, nausea, vomiting, abdominal pain, or dizziness. On arrival to the ED, her neurological symptoms had resolved, and her headache improved with medication. Initial evaluation revealed elevated blood pressure (up to 185/82 mmHg), mild anemia, and hyperglycemia, but no acute findings on head CT or CTA of the head and neck. MRI of the brain showed no evidence of acute ischemia or space- occupying lesions. Echocardiogram demonstrated a normal ejection fraction (65?70%), mild to moderate mitral regurgitation, and moderate left atrial enlargement. She was started on dual antiplatelet therapy with aspirin and clopidogrel for secondary stroke prevention, and her home statin was continued. Blood pressure was managed with her home antihypertensives, and permissive hypertension was allowed during the acute period. Her diabetes was managed with close glucose monitoring, and metformin was held during the initial evaluation. During her admission, she remained hemodynamically stable, with no recurrence of neurological symptoms. Telemetry monitoring was initiated due to episodes of bradycardia, particularly during sleep, and outpatient ambulatory monitoring was arranged. Given her history of obstructive sleep apnea and significant weight loss, a repeat outpatient sleep study was recommended. She tolerated her hospit al course well, with no new complaints or complications. She was deemed stable for discharge with plans for continued dual antiplatelet therapy, home antihypertensives, statin, outpatient cardiology follow-up for mitral regurgitation and left atrial enlargement, ambulatory cardiac monitoring, and repeat sleep study. Neurology and cardiology consultations were obtained, and their recommendations were incorporated into her discharge plan. Cardiology will set up outpatient telemetry hospital monitor to assess for underlying arrhythmia. They will follow-up in the outpatient setting after these results have come in. We will also have the patient follow-up with Neurology in 6-8 weeks. Will plan for discharge home at this time on aspirin 81 mg daily and Plavix 75 mg daily. Status at Discharge Functional status at discharge: independent ambulation Overall status at discharge: patient is back to baseline Time Spent with Patient Time attestation: Total time spent providing and/or coordinating discharge services: 31 Exam Narrative: Gen - well appearing female in no acute respiratory distress who is nontoxic- appearing lying semi recumbent in bed HEENT - normocephalic. Atraumatic. Pupils equal round and reactive. Extraocular motions intact. Moist mucous membranes. Tongue was midline. No facial asymmetry. Neck - neck was supple. No dominant adenopathy, thyromegaly or masses. 2+ carotid upstrokes without bruits. Chest - lungs are clear to auscultation bilaterally. No wheezes or crackles. CV - heart was regular rate and rhythm. S1-S2. No murmurs gallops or rubs. Abd - abdomen was soft. Nontender. Nondistended. Positive bowel sounds. No organomegaly or masses. Ext - no clubbing, cyanosis or edema. 2+ DP pulses bilaterally. Neuro - patient is alert and oriented x4. Strength is 5/5 in both upper and lower extremities. Cranial nerves 2-12 are intact. Speech is clear. Psych - normal mood and affect. Patient is pleasant and cooperative. Skin - warm and dry. No rashes noted. Discharge Plan Discharge Attending physician on discharge: Deonna Ortiz Consulting providers: Luis Enrique Lynne; Parker Roberts; Zuleyka Garnica Discharging Clinician: Luis Enrique Lynne Anticipated Discharge Date/Time: 08/12/25 14:04 Patient Disposition: Home Activity: as tolerated Diet: as tolerated Discharge Instructions: Discharge disposition: Home Take medications as prescribed. Plavix 75mg daily for 30 days and Aspirin 81mg daily for 90 days. Please take medication as prescribed Do not stop medication before talking to your doctor Bleeding risk is increased while taking medications like aspirin or NSAIDs like ibuprofen or naproxen If you fall or hurt herself or hurt your head, call your doctor right away. You may bleed more easily. Be careful to avoid injury. Discuss this drug with your doctor before undergoing any type of surgery or procedure Monitor blood pressures Take caution while standing, rising, or moving Change positions slowly taking a break between each position change If you standing feel dizzy sit back down and take a break Encouraged to continue with yearly vaccinations Return to the emergency department if you develop sudden shortness of breath, chest pain, nausea, vomiting, upset stomach or intractable diarrhea Return to the emergency department if you develop fever greater than 101.5 Follow-up with the primary care physician within 1-2 weeks Follow-up with Neurology in 6-8 weeks. Follow-up with Cardiology in 30 days after your Cardiac event monitor has completed. Thank you for choosing [facility] for your healthcare needs Patient Language: Sammarinese Stand Alone Forms: General Discharge Information Follow-up/Referrals: Valarie Quintanilla MD [Primary Care Provider, [facility]] Discharge Medications: New aspirin [Children's Aspirin] 81 mg Tablet,Chewable 81 mg PO DAILY@0800 Qty: 90 0RF clopidogrel 75 mg Tablet 75 mg PO QAM Qty: 30 0RF Continued lysine 500 mg tablet 500 mg PO DAILY Probiotic 3 billion cell capsule 3,000 mmu cells PO DAILY Rx Instructions: administer with a meal acetaminophen [Tylenol Arthritis Pain] 650 mg tablet extended release 650 mg PO Q12H vitamin F08-pshgh acid 0.5-1 mg tablet 1 tablet PO DAILY omega 6-qld-kos-fish oil 300-1,000 mg capsule 1 cap PO DAILY (DME) FreeStyle Vivi 2 Sensor Kit See Rx Instructions .Route Qty: 10 1RF Rx Instructions: As directed (DME) FreeStyle Vivi 2 Fenton Misc See Rx Instructions .Route Qty: 1 1RF Rx Instructions: As directed cholecalciferol (vitamin D3) 25 mcg (1,000 unit) capsule 25 mcg PO DAILY furosemide 40 mg tablet 40 mg PO PRN PRN (Reason: monitor blood pressure) valacyclovir 500 mg tablet 500 mg PO PRN (DME) blood-glucose meter [Accu-Chek Guide Glucose Meter] Misc See Rx Instructions .Route Qty: 1 0RF Rx Instructions: Use to check blood sugars daily (DME) Accu-Chek Guide test strips Strip See Rx Instructions .Route Qty: 100 1RF Rx Instructions: Use to check blood sugars daily metformin 500 mg tablet extended release 24 hr 1,000 mg PO BID Qty: 360 1RF atorvastatin [Lipitor] 80 mg tablet 80 mg PO QHS Qty: 90 3RF Rx Instructions: after dinner tizanidine 2 mg tablet See Rx Instructions .ROUTE .COMPLEX Qty: 270 0RF Dose Instruction: TAKE 1 TABLET BY MOUTH THREE TIMES A DAY NEEDED FOR MUSCLE SPASM Rx Instructions: TAKE 1 TABLET BY MOUTH THREE TIMES A DAY NEEDED FOR MUSCLE SPASM amlodipine-olmesartan 5-40 mg tablet 1 tablet PO DAILY Qty: 90 1RF Held ibuprofen 200 mg tablet 400 mg PO ONCE PRN (Reason: pain) Hold Instructions: Resume on 09/12/25. celecoxib 100 mg capsule 100 mg PO BID Qty: 180 1RF Hold Instructions: Resume on 09/12/25. Discontinued glucosamine sulfate [Glucosamine] 500 mg tablet 500 mg PO DAILY Rx Instructions: administer with a meal azithromycin 250 mg tablet See Rx Instructions PO .COMPLEX Qty: 6 0RF Rx Instructions: For 250 mg dose pack: take 500 mg today (day 1), then 250 mg for 4 days (days 2-5) PO Other Ambulatory Orders: [place] cardiac event monitor (Routine) Timeframe: 1 Month Location: Determined by Patient Ordered By: Zuleyka Garnica Date of admission: 08/11/25 01:53 Primary Care Provider: Valarie Quintanilla Admitting Provider: Emerald Arce Attending physician on admission: Emerald Arce Condition: Stable
== END 2025-08-12 13:42 | disposition home or self-care (01) ==
LOC: ANHED 08-11 00:48 → ANH3MEDSUR 08-11 02:50
PROVIDERS: Admitting Provider Internal Medicine; Emergency Provider Emergency Medicine; PCP Family Medicine; Visit Provider Physician Assistant
DX: G45.9 Transient cerebral ischemic attack, unspecified (principal); R47.02 Dysphasia; E11.40 Type 2 diabetes mellitus with diabetic neuropathy, unspecified; E78.2 Mixed hyperlipidemia; I10 Essential (primary) hypertension; R00.1 Bradycardia, unspecified; I34.0 Nonrheumatic mitral (valve) insufficiency; R91.8 Other nonspecific abnormal finding of lung field; G47.33 Obstructive sleep apnea (adult) (pediatric); E66.01 Morbid (severe) obesity due to excess calories; Z68.38 Body mass index [BMI] 38.0-38.9, adult; M48.07 Spinal stenosis, lumbosacral region; M54.12 Radiculopathy, cervical region; Z79.84 Long term (current) use of oral hypoglycemic drugs; Z82.3 Family history of stroke; Z80.3 Family history of malignant neoplasm of breast; Z80.0 Family history of malignant neoplasm of digestive organs
CPT/HCPCS: 36415; 70496; 70498; 70553; 80053; 80061; 81001; 82948; 85025; 85610; 85730; 93005; 93306; 96361; 96374; 96375; 97161; 97165; 99285; A9270; A9577; G0378; J0780; J1200; J7030; Q9967